=== PATIENT | male | born 1940 | race Caucasian/White ===

== ENCOUNTER 2016-07-13 11:09 | Outpatient (CLI) | payer MEDICARE, OTHER ==
[~2016-07-13] VITALS: Ht 182.9 cm; Wt 104.5 kg
--- NOTE | ~2016-07-13 | HEMODYNAMI ---
PATIENT:KRISTAL VUONG MEDICAL RECORD: [id number] : 38 LOCATION:[facility] ADMISSION DATE: 07/13/16 Generatedon:07/13/201614:43 Patient name: KRISTAL VUONG Patient #: [id number] SSN: : 1940 Date of study: 07/13/2016 Page: Of Hemodynamic Procedure Report Patient Data Patient Demographics Procedure consent was obtained First Name: KRISTAL Gender: Male Last Name: YEVGENIY : 1940 Middle Initial: FRANCO Age: 75 year(s) Patient #: [id number] Race: Unknown Additional ID: [id number] Contact details [address]: [address] [place] [address] ROAD State: [place] City: [place] Zip code: [address] Past Medical History Allergies Allergen Reaction Date Comments Reported Sulfa drugs 07/13/2016 Other allergy 07/13/2016 CIPRO, FIOMAX Admission Admission Data Admission Date: 07/13/2016 Admission Time: 11:09 Lab Results Lab Result Date: 07/13/2016 Lab Result Time: 0:00 Biochemistry Name Units Result Min Max BUN mg/dl 19 --(----)*- 7 18 Creatinine mg/dl 0.9 --(-*--)-- 0.6 1.3 CBC Name Units Result Min Max Hemoglobin g/dl 15.1 --(-*--)-- 13.5 17.5 Procedure Procedure Types Cath Procedure Miscellaneous Procedures Moderate Sedation up to 15 minutes Peripheral Cath Diagnostic Procedure Cath Peripheral Owrqa-Ldmqjnh-Wtt-Off Procedure Description Procedure Date Procedure Date: 07/13/2016 Procedure Start Time: 14:21 Procedure End Time: 14:42 Procedure Staff Name Function Mekhi Conley MD Performing Physician Lilli Veronica RN Nurse Simon Ramos RT Monitor Gerson Bang RT Scrub Procedure Data Cath Procedure Fluoroscopy Diagnostic fluoroscopy Total fluoroscopy Time: 1.1 time: 1.1 min min Diagnostic fluoroscopy Total fluoroscopy dose: 376 dose: 376 mGy mGy Contrast Material Contrast Material Type Amount (ml) Isovue 300 61 Entry Location Entry Primary Successful Side Size Upsize Upsize Entry Closure Succes sful Closure Location (Fr) 1 (Fr) 2 (Fr) Remarks Device Remarks Femoral Left 5 Fr Exoseal artery Diagnostic catheters Device Type Used For End Catheter Placement Cordis Tempo 5Fr UF catheter Procedure Complications No complications Procedure Medications Medication Administration Route Dosage Oxygen NC 2 l/min Heparin Flush Bag added to field 2 bags (1000units/500ml NS) Lidocaine 2% added to field 20 Versed I.V. 1 mg Fentanyl I.V. 50 mcg Versed I.V. 1 mg Fentanyl I.V. 50 mcg Versed I.V. 1 mg Fentanyl I.V. 50 mcg Benadryl I.V. 50 mg Hemodynamics Rest HGB: 15.1 (g/dl) Heart Rate: 70 (bpm) Snapshots Pre Cath Intra NCS Post Cath Vital Signs Time Heart Resp SPO2 etCO2 VB4swrl NIBP (mmHg) Rhythm Pain Sedation Rate (ipm) (%) (mmHg) (mmHg) Status Level (bpm) 14:02:44 67 14 96 0 0 175/90(135) NSR 0 (11) 10(A) , No pain 14:07:04 66 15 98 0 0 169/93(143) NSR 0 (11) 10(A) , No pain 14:11:26 66 20 100 0 0 166/96(111) NSR 0 (11) 10(A) , No pain 14:15:48 67 20 100 0 0 152/89(124) NSR 0 (11) 10(A) , No pain 14:20:08 71 22 97 0 0 146/92(122) NSR 0 (11) 9(A) , No pain 14:24:27 81 16 96 0 0 119/87(95) NSR 0 (11) 9(A) , No pain 14:29:26 79 16 97 0 0 164/95(130) NSR 0 (11) 9(A) , No pain 14:34:25 76 10 98 0 0 Measuring NSR 0 (11) 9(A) , No pain 14:34:33 73 11 98 0 0 166/99(131) NSR 0 (11) 9(A) , No pain 14:38:53 71 19 98 0 0 162/87(92) NSR 0 (11) 9(A) , No pain Medications Time Medication Route Dose Verified Delivered Reason Notes Effec tiveness by by 14:01:38 Oxygen NC 2 Mekhi Lilli Per l/min Jarvis Veronica RN physician 14:01:47 Heparin Flush added 2 Mekhi Mekhi used for Bag to bags Jarvis Conley MD procedure (1000units/500ml field NS) 14:01:53 Lidocaine 2% added 20ml Mekhi Mekhi used for to vial Jarvis Conley MD procedure field 14:02:31 Benadryl I.V. 50 mg Mekhi Lilli Per Jarvis Veronica RN physician 14:14:00 Versed I.V. 1 mg Mekhi Lilli for Jarvis Veronica RN sedation 14:14:14 Fentanyl I.V. 50 Mekhi Lilli for mcg Jarvis Veronica RN sedation 14:16:29 Versed I.V. 1 mg Mekhi Lilli for Jarvis Veronica RN sedation 14:16:33 Fentanyl I.V. 50 Mekhi Lilli for mcg Jarvis Veronica RN sedation 14:18:35 Versed I.V. 1 mg Mekhi Lilli for Jarvis Veronica RN sedation 14:18:44 Fentanyl I.V. 50 Mekhi Lilli for mcg Jarvis Veronica RN sedation Procedure Log Time Note 13:34:28 Procedure type changed to Cath procedure, Miscellaneous Procedures, Moderate Sedation up to 15 minutes, Peripheral Cath Diagnostic Procedure, Cath Peripheral, Ssxoo-Xbxqbif-Erp-Off 13:34:52 Simon Ramos RT(R) sent for patient. Start room use. 13:34:53 Time tracking: Regular hours 13:34:58 Plan of Care:Hemodynamics will remain stable., Cardiac rhythm will remain stable., Comfort level will be maintained., Respiratory function will remain adequate., Patient/ family verbilizes understanding of procedure., Procedure tolerated without complication., Recovers from procedure without complications.. 13:57:45 Patient received from Pre/Post Procedure Room to CCL 1 Alert and oriented. Tansferred to table in Supine position. 13:57:46 Warm blankets applied, and javad hugger turned on for patient comfort. 13:57:47 Correct patient and procedure confirmed by team. 13:57:48 Signed procedure consent form obtained from patient. 13:57:49 ECG and BP/O2 sat monitors applied to patient. 14:01:30 Vital chart was started 14:01:38 Oxygen 2 l/min NC was administered by Lilli Veronica RN; Per physician; 14:01:47 Heparin Flush Bag (1000units/500ml NS) 2 bags added to field was administered by Mekhi Conley MD; used for procedure; 14:01:53 Lidocaine 2% 20ml vial added to field was administered by Mekhi Conley MD; used for procedure; 14:02:31 Benadryl 50 mg I.V. was administered by Lilli Veronica RN; Per physician; 14:12:23 Baseline sample Acquired. 14:12:26 Rhythm: sinus rhythm 14:12:27 Full Disclosure recording started 14:12:40 H&P Date Dictated: 07/05/2016 Within 30 days and on chart., H&P Addendum completed by physician on day of procedure. (MUST COMPLETE FOR ALL OUTPATIENTS). 14:12:41 Pre-procedure instructions explained to patient. 14:12:42 Pre-op teaching completed and patient verbalized understanding. 14:12:44 Family in waiting room. 14:12:45 Patient NPO since Midnight. 14:12:50 Is the patient allergic to Iodine/contrast media? No. 14:12:52 Is patient on blood thinner?No 14:12:54 Patient diabetic? No. 14:12:55 ----Pre-sedation anethsthesia assessment.---- 14:12:58 Previous problem with sedation/anesthesia? No ? 14:13:03 Snore? Yes 14:13:04 Sleep apnea? No 14:13:06 Deviated septum? No 14:13:07 Opens mouth fully? Yes 14:13:08 Sticks out tongue? Yes 14:13:11 Airway obstruction? No ? 14:13:13 Dentures? No ? 14:13:20 Pre procedure: right dorsailis pedis pulse 1+ Palpable, but thready & weak; easily obliterated 14:13:27 Pre procedure: left dorsailis pedis pulse 1+ Palpable, but thready & weak; easily obliterated 14:13:29 Patient pain scale 0/10 ?. 14:13:33 IV patent on arrival in left forearm with 0.9% NaCl at 10ml/hr. 14:13:38 Bilateral groins area was prepped with chlora-prep and draped in sterile fashion 14:13:39 Alarms reviewed by R. N. 14:13:39 Sharps counted by scrub and verified by R.N. 14:13:41 --------ALL STOP TIME OUT------ 14:13:43 Final Timeout: patient, procedure, and site verified with staff and physician. All members of the team are in agreement. 14:13:45 Bilateral groins site verified by team. 14:13:47 Physical assessment completed. ASA score P 2 - A patient with mild systemic disease as per Mekhi Conley MD. 14:13:50 Sedation plan: IV Moderate Sedation Versed, Fentanyl 14:14:00 Versed 1 mg I.V. was administered by Lilli Veronica RN; for sedation; 14:14:14 Fentanyl 50 mcg I.V. was administered by Lilli Veronica RN; for sedation; 14:14:22 Lab Result : BUN 19 mg/dl 14:14:22 Lab Result : Creatinine 0.9 mg/dl 14:14:22 Lab Result : Hemoglobin 15.1 g/dl 14:14:27 Lab results completed and on chart. 14:14:50 Patient allergic to Sulfa drugs 14:15:07 Patient allergic to Other allergyCIPRO, FIOMAX 14:16:19 Use device set Femoral Dx 14:16:21 Acist Syringe opened to sterile field. 14:16:21 Bag Decanter opened to sterile field. 14:16:22 Medline Cath Pack opened to sterile field. 14:16:22 Terumo 5Fr Canby Sheath opened to sterile field. 14:16:23 St [facility] 260cm J .035 wire opened to sterile field. 14:16:24 Acist Hand Control opened to sterile field. 14:16:24 Acist Manifold opened to sterile field. 14:16:25 Tegaderm 4 x 4 opened to sterile field. 14:16:28 Procedure started. 14:16:29 Versed 1 mg I.V. was administered by Lilli Veronica RN; for sedation; 14:16:33 Fentanyl 50 mcg I.V. was administered by Lilli Veronica RN; for sedation; 14:18:35 Versed 1 mg I.V. was administered by Lilli Veronica RN; for sedation; 14:18:44 Fentanyl 50 mcg I.V. was administered by Lilli Veronica RN; for sedation; 14:: Local anesthetic to left femerol artery with Lidocaine 2% by Lilli Veronica RN.INITIAL ACCESS ONLY 14::32 A 5 Fr sheath was inserted into the Left Femoral artery 14:23:02 5 Fr UF guide catheter was inserted over the wire 14:23: Abdominal Aortagram was performed. 14::12 Right leg runoff performed. 14:: Left leg runoff performed. 14:: Guide catheter removed. 14::20 Contrast amount:Isovue 300 61ml. 14:: Sheath removed intact; hemostasis achieved with Exoseal to the Left Femoral artery. 14::45 Procedure ended.(Physican Out) 14::22 Fluoroscopy time 01.10 minutes. 14:: Fluoroscopy dose: 376 mGy 14:: Flurop Dose total: 376 14::30 Sharps counted by scrub and verified by R.N. 14:28:31 Insertion/operative site no bleeding no hematoma. 14:28:34 Post-op/insertion site Left Femoral artery dressed using a 4 x 4 and Tegaderm. 14::39 Post left femerol artery:stable 14::42 Post Procedure Pulses reassessed and unchanged 14::44 Post procedure rhythm: sinus rhythm 14::46 Post procedure instruction explained to patient.Patient verbalizes understanding. 14::45 A Cordis Tempo 5Fr UF catheter was advanced over the wire and used for . 14:30:37 Procedure and supply charges have been captured, reviewed, submitted and are correct. 14:30:51 Cordis 5Fr Exoseal opened to sterile field. 14:41:52 Procedure Complication : No complications 14:42:00 Vital chart was stopped 14:42:01 See physician's report for complete and final results. 14:42:04 Report given to Pre/Post Procedure Room. 14:42:14 Patient transfered to Pre/Post Procedure Room with Stretcher. 14:42:34 Procedure ended. 14:42:34 Full Disclosure recording stopped 14:42:39 End room use (Document Last) Device Usage Item Manufacture Quantity Catalog Hospital Part Current Minimal Lot# / Name Number Charge Number Stock Stock Clare al# Code Acist Acist 1 02862 670822 241484 [id number] 20 Syringe [employer] Inc Bag Microtek 1 2002S 110397 72799 135979 5 Decanter [employer]. Medline Cardinal 1 [id number] 58647 238068 5 Cath Health Pack Terumo Terumo 1 [id number] 987425 207760 392398 [address] [facility] 1 [id number] 943338 445919 425957 30 260cm J .035 wire Acist Acist 1 75775 688477 167395 207055 5 Hand Medical Control Systems Inc Acist Acist 1 69929 944892 985677 653560 5 Manifold Medical Systems Inc Tegaderm 1 1626W 115044 846464 810094 5 4 x 4 Cordis Cardinal 1 [id number] 684117 269146 144963 10 Tempo Health 5Fr UF catheter Cordis Cardinal 1 EX500 067539 397981 819088 10 5Fr Health Exoseal Signature Audit Sharon Stage Time Signature Unsigned Intra-Procedure 07/13/2016 Simon Ramos 2:43:29 PM RT(R) Signatures Monitor : Simon Ramos RT Signature : Date : Time : [address] [place] [address]
[~2016-07-13 11:09] MED LIST: ASCORBIC ACID500 MG PO; ASPIRIN325 MG PO; BYSTOLIC5 MG PO; FLEXERIL10 MG PO; PLAVIX75 MG PO; TYLENOL PM1 TAB PO; ZANTAC150 MG PO
[2016-07-13] MEDS ORDERED: NEURONTIN 400400 MG PO (11:46)
[2016-07-13] MEDS ORDERED: ELAVIL25 MG PO (11:46)
[2016-07-13] MEDS ORDERED: METOPROLOL TAR100 M1 PO (11:47)
[2016-07-13] MEDS ORDERED: NEURONTIN800 MG PO (11:47)
[2016-07-13 11:53] VITALS: BP 155/76; Ht 182.9 cm; Wt 104.5 kg
[2016-07-13 12:09] LABS: BASOPHILS 0 % (0-2); EOSINOPHILS 3.9 % (0-7); HEMATOCRIT 45.3 % (42.0-54.0); HEMOGLOBIN 15.1 g/dL (13.5-17.5); IMMATURE GRANULOCYTES 0.3 % (0-5); LYMPHOCYTES 34.5 % (15-50); MCHC 33.3 g/dL (31.0-37.0); MCV 99.1 fL (80.0-100.0); MEAN PLATELET VOLUME 12.3 fL (7.4-10.4); MONOCYTES 10.2 % (2-11); NEUTROPHILS 51.1 % (40-80); PLATELET COUNT 142 10x3/uL (130-400); RBC 4.57 10x6/uL (4.20-6.10); RDW 12.8 % (11.5-14.5); WBC 6.4 10x3/uL (4.8-10.8)
[2016-07-13 12:19] LABS: CALC OSMOLALITY 279 mosm/kg (275-300); CALCIUM 9.5 mg/dL (8.5-10.1); CARBON DIOXIDE 30.3 mmol/L (21.0-32.0); CHLORIDE - SERUM 103 mmol/L (98-107); CREATININE - SERUM 0.9 mg/dL (0.6-1.3); GLUCOSE 90 mg/dL (74-106); POTASSIUM - SERUM 4.4 mmol/L (3.5-5.1); SODIUM 139 mmol/L (136-145); UREA NITROGEN 19 mg/dL (7-18); eGFR NON AFRICAN AMERICAN 87 mL/min (90-120)
--- NOTE | 2016-07-13 18:37 | NUR ---
1515-LEFT GROIN CDI, NO HEMATOMA OR BLEEDING NOTED, SOFT TO TOUCH, AT SIDE 1545-NO CHANGES IN LEFT GROIN, CDI
--- NOTE | 2016-07-13 18:44 | NUR ---
1740-IV D'C WITH CATH TIP INTACT, WRITTEN AND VERBAL INSTRUCTIONS GIVEN TO PT AND , VERBAL UNDERSTANDING NOTED, TO REST ROOM -VOID
--- NOTE | 2016-07-15 10:59 | OP ---
PATIENT NAME: KRISTAL VUONG MEDICAL RECORD: [id number] :38 LOCATION:[facility] ADMISSION DATE: SURGEON: LUANN LANE M.D. DATE OF OPERATION: 07/13/2016 REFERRING PHYSICIAN: Macario Leary DO PROCEDURES PERFORMED: Aortofemoral runoff. INDICATION: A 75-year-old gentleman, who presents with symptoms of claudication. Recent arterial duplex suggested disease in the superficial femoral arteries. TECHNIQUE: A 5-Romansh sheath was inserted in retrograde fashion in the right common femoral artery. Next, a UF catheter was advanced to the level of T12. Power injection was performed to visualize the distal aorta. Next, the catheter was pulled down to the level of the aortic bifurcation. Lower extremity angiogram was then performed. FINDINGS: The distal aorta is of good caliber. Each kidney receives a single arterial supply. There is no evidence of renal artery stenosis. Left common iliac artery is large in caliber and widely patent. Left external iliac artery is large in caliber and widely patent. Left common femoral artery is large in caliber and widely patent. Left superficial artery is large in caliber. It appears to be 8-9 mm in diameter. It is widely patent. Left superficial artery is large in caliber and widely patent. Below the knee, there appears to be 3-vessel runoff. Right common iliac artery is large in caliber and widely patent. The right external iliac artery is large in caliber and widely patent. Right common femoral artery is large in caliber and widely patent. Right superficial artery is large in caliber and widely patent. Right popliteal artery is large in caliber and widely patent. Below the knee, there is 3-vessel runoff. IMPRESSION: Aortofemoral runoff reveals large caliber vessel bilaterally with no evidence of any significant peripheral vascular disease. RECOMMENDATIONS: I suspect his discomfort may be from his lumbar spine. We will continue with medical management. TRANSINT:[id number] Voice Confirmation ID: [id number] DOCUMENT ID: [id number] LUANN LANE M.D. at 1059 CC: [id number] DICTATION DATE: 07/13/16 1438 AUTOMOBILE TESTER: 07/13/16 2305 DEP CLI 07/13/[address] [facility] [address] [place] [address]
== END 2016-07-13 17:50 | disposition home or self-care (01) ==
LOC: D.CATH 11:09
PROVIDERS: Internal Medicine Cardiovascular Disease
DX: M79.606 Pain in leg, unspecified (principal)

== ENCOUNTER 2019-01-25 09:31 | Inpatient (IN) | payer MEDICARE ==
[~2019-01-25] VITALS: Ht 182.9 cm; Wt 96.8 kg
--- NOTE | ~2019-01-25 | HEMODYNAMI ---
PATIENT:KRISTAL VUONG MEDICAL RECORD: [id number] : 38 LOCATION:[facility] D.2114 ADMISSION DATE: 01/25/19 Generatedon:01/25/201913:57 Patient name: KRISTAL VUONG Patient #: [id number] : 1940 Date of study: 01/25/2019 Page: Of Hemodynamic Procedure Report Patient Data Patient Demographics Procedure consent was obtained First Name: KRISTAL Gender: Male Last Name: YEVGENIY : 1940 Middle Initial: FRANCO Age: 78 year(s) Patient #: [id number] Race: SSN: [id number] Additional ID: [id number] Contact details Address: [address] [place] [address] ROAD State: [place] City: [place] Zip code: [address] Past Medical History Allergies Allergen Reaction Date Comments Reported Sulfa drugs 07/13/2016 Other allergy 07/13/2016 CIPRO, FIOMAX Other allergy 01/25/2019 CIPRO,FLOMAX Admission Admission Data Admission Date: 01/25/2019 Admission Time: 11:29 Arrival Date: 01/25/2019 Arrival Time: 9:31 Admit Source: Other Insurance Payor: Medicare Room #: D.2114 [facility] #: [id number] Height (in.): 72.05 BSA: 2.19 (m2) Height (cm.): 183 BMI: 28.96 (kg/m2) Weight (lbs.): 213.85 Weight (kg.): 97 Lab Results Lab Result Date: 01/25/2019 Lab Result Time: 0:00 Biochemistry Name Units Result Min Max BUN mg/dl 15 --(--*-)-- 7 18 Creatinine mg/dl 0.8 --(-*--)-- 0.6 1.3 eGFR ml/min 90 --(*---)-- 90 120 NONAFRICAN CBC Name Units Result Min Max Hemoglobin g/dl 14.5 --(*---)-- 13.5 17.5 Procedure Procedure Types Cath Procedure Diagnostic Procedure LHC LHC w/Coronaries w/Grafts Sedation Charges Moderate Sedation up to 15 minutes PCI Procedure PTCA PTCA Initial Procedure Description Procedure Date Procedure Date: 01/25/2019 Procedure Start Time: 13:25 Procedure End Time: 13:55 Procedure Staff Name Function Yg Lebron MD Performing Physician Linnea Mg RT Monitor Brigid Odonnell RT Scrub Kristina Everett RN Nurse Procedure Data Cath Procedure Fluoroscopy Diagnostic fluoroscopy Total fluoroscopy Time: 6.3 time: 6.3 min min Diagnostic fluoroscopy Total fluoroscopy dose: dose: 1624 mGy 1624 mGy Contrast Material Contrast Material Type Amount (ml) Isovue 300 179 Entry Location Entry Primary Successful Side Size Upsize Upsize Entry Closure Succes sful Closure Location (Fr) 1 (Fr) 2 (Fr) Remarks Device Remarks Femoral Right 6 Fr Exoseal artery Short Estimated blood loss: 10 ml Diagnostic catheters Device Type Used For End Catheter Placement MULTIPACK JL 4.0 5Fr Procedure catheter MULTIPACK 3DRC 5Fr Procedure catheter MULTIPACK Pigtail 5 Fr Ventriculography catheter Procedure Complications No complications Procedure Medications Medication Administration Route Dosage 0.9% NaCl I.V. 100 ml/hr Oxygen etCO2 Nasal cannula 2 l/min Lidocaine 2% added to field 20 Heparin Flush Bag added to field 2 bags (1000units/500ml NS) Versed I.V. 2 mg Fentanyl I.V. 50 mcg Fentanyl I.V. 50 mcg Heparin Bolus I.V. 5000 units Integrilin (Bolus I.V. 9 ml 2mg/ml) Integrilin (Bolus wasted 2 ml 2mg/ml) Integrilin (Bolus I.C. 9 ml 2mg/ml) Integrilin Drip I.V. drip 16 ml/hr (75mg/100ml) Plavix P.O. 600 mg Hemodynamics Rest BSA: 2.19 (m2) HGB: 14.5 (g/dl) O2 Consumption: Estimated: 276.46 (ml/min) O2 Co nsumption indexed: Estimated:126.24 (ml/min/m) Heart Rate: 101 (bpm) Pressure Samples Time Site Value (mmHg) Purpose Heart Use Rate(bpm) 13:32 LV 124/8,18 Snapshot 81 13:32 AO 129/69(94) Pullback 78 13:32 LV 126/10,23 Pullback 78 Gradients Valve Time Site 1 Site 2 Mean SEP/DFP Peak To Heart Use (mmHg) (sec/min) Peak Rate (mmHg) (bpm) Aortic 13:32 LV AO 0 18 0 78 126/10,23 129/69(94) Calculations Valve P-P Mean Valve Index Valve Source Name Gradient Area Flow (cm2) Aortic 0 0 0 0 Snapshots Pre Cath Intra NCS Post Cath Vital Signs Time Heart Resp SPO2 etCO2 NIBP (mmHg) Rhythm Pain Sedation Rate (ipm) (%) (mmHg) Status Level (bpm) 13:13:57 77 19 97 18.1 129/88(104) NSR 0 (11) 10(A) , No pain 13:18:06 86 23 96 26.4 129/80(102) NSR 0 (11) 10(A) , No pain 13:22:18 79 13 96 21.8 121/79(95) NSR 0 (11) 10(A) , No pain 13:26:28 78 25 99 29.4 125/85(105) NSR 0 (11) 10(A) , No pain 13:30:40 77 23 98 32 143/83(113) NSR 0 (11) 10(A) , No pain 13:34:52 77 13 98 14.3 140/91(119) NSR 0 (11) 10(A) , No pain 13:39:00 80 14 98 12 128/85(105) NSR 0 (11) 10(A) , No pain 13:43:12 80 18 98 31.7 137/90(112) NSR 0 (11) 10(A) , No pain 13:48:11 79 20 99 22.6 Measuring NSR 0 (11) 10(A) , No pain 13:48:28 81 19 98 24.1 131/88(108) NSR 0 (11) 10(A) , No pain 13:52:42 80 21 98 33.2 143/91(119) NSR 0 (11) 10(A) , No pain Medications Time Medication Route Dose Verified Delivered Reason Notes Effectiveness by by 13:13:05 0.9% NaCl I.V. 100 Yg Acevedo used for ml/hr [facility] Everett procedure RN 13:13:11 Oxygen etCO2 2 Yg Kristina used for Nasal l/min [facility] procedure cannula RN 13:13:16 Lidocaine 2% added 20ml Yg Ronquillo for local to vial [facility] anesthetic field MD ROSEN 13:13:20 Heparin Flush added 2 Yg Ronquillo used for Bag to bags [facility] procedure (1000units/500ml field MD ROSEN NS) 13:19:07 Versed I.V. 2 mg Yg Englisha for sedation [facility] Everett MD, RN 13:19:11 Fentanyl I.V. 50 Yg Kristina for sedation mcg [facility] Everett MD, RN 13:27:37 Fentanyl I.V. 50 Yg Campbellyla for sedation mcg [facility] Everett MD RN 13:37:02 Heparin Bolus I.V. 5000 Yg Kristina for verif ied units [facility] anticoagulation with Dr. ROSEN RN [place] 13:37:17 Integrilin I.V. 9 ml Yg Campbellyla for (Bolus 2mg/ml) [facility] Everett antiplatelet RN therapy 13:37:27 Integrilin wasted 2 ml Yg Englisha for (Bolus 2mg/ml) [facility] Everett antiplatelet RN therapy 13:37:34 Integrilin I.C. 9 ml Yg Ronquillo for (Bolus 2mg/ml) [facility] Marc[facility] Lebron antiplatelet MD ROSEN therapy 13:46:26 Integrilin Drip I.V. 16 Yg Kristina for (75mg/100ml) drip ml/hr [facility] Everett antiplatelet RN therapy 13:46:36 Plavix P.O. 600 Yg Acevedo for mg [facility] Marc[facility] Everett antiplatelet RN therapy Procedure Log Time Note 12:36:19 Diagnostic Cath Status : Elective 12:37:35 Informed consent obtained and on chart 12:42:48 Admit Source: Other 12:42:50 Arrival Date: 01/25/2019 9:31:00 AM 12:43:53 Insurance Payor : Medicare 12:44:03 Patient Height : 72.05 inches 12:44:08 Patient Weight : 213.85 lbs 12:45:30 Lab Result : eGFR NONAFRICAN 90 ml/min 12:45:30 Lab Result : Hemoglobin 14.5 g/dl 12:45:30 Lab Result : BUN 15 mg/dl 12:45:30 Lab Result : Creatinine 0.8 mg/dl 12:45:37 ACC Patient presents with Stable Angina CCS Anginal Class 2--Slight limitation of ordinary activity. 12:45:42 Procedure Status Elective Heart Cath (OP). 12:45:45 Kristina Everett RN sent for patient. Start room use. 12:45:47 Time tracking: Regular hours (M-F 7:00 - 5:00) 12:45:52 Plan of Care:Hemodynamics will remain stable., Cardiac rhythm will remain stable., Comfort level will be maintained., Respiratory function will remain adequate., Patient/ family verbilizes understanding of procedure., Procedure tolerated without complication., Recovers from procedure without complications.. 12:46:40 Maximum allowable contrast dose (3.7 X eGFR X 0.75)249 ml. 12:46:43 1) 90+ Normal kidney functon but urine findings or structural abnormalities or genetic trait point to kidney disease. 12:48:51 Risk of Mortality: 1.3 12:48:55 Risk of blood transfusion: 1.1 12:49:01 Risk of TABBY: 6.4 13:12:57 Vital chart was started 13:13:05 0.9% NaCl 100 ml/hr I.V. was administered by Kristina Everett RN; used for procedure; Verbal order read back and verified. 13:13:11 Oxygen 2 l/min etCO2 Nasal cannula was administered by Kristina Everett RN; used for procedure; Verbal order read back and verified. 13:13:16 Lidocaine 2% 20ml vial added to field was administered by Yg Lebron MD; for local anesthetic; Verbal order read back and verified. 13:13:20 Heparin Flush Bag (1000units/500ml NS) 2 bags added to field was administered by Yg Lebron MD; used for procedure; Verbal order read back and verified. 13:15:51 Patient received from ED to CCL 1 Alert and oriented. Tansferred to table in Supine position. 13:16:01 Warm blankets applied, and javad hugger turned on for patient comfort. 13:16:02 Correct patient and procedure confirmed by team. 13:16:02 ECG and BP/O2 sat monitors applied to patient. 13:16:03 Baseline sample Acquired. 13:16:08 Full Disclosure recording started 13:16:12 H&P Date Dictated: 01/25/2019 Emergent; H&P N/A. 13:16:14 Pre-procedure instructions explained to patient. 13:16:20 Family in waiting room. 13:16:22 Patient NPO since Midnight. 13:17:06 Patient allergic to Other allergyCIPRO,FLOMAX 13:17:11 Is the patient allergic to Iodine/contrast media? No. 13:17:19 Was the patient premedicated? Yes 13:17:21 Is patient on blood thinner?No 13:17:23 Patient diabetic? No. 13:17:26 Snore? Yes 13:17:29 Sleep apnea? No 13:17:37 Patient pain scale 4/10 ?. 13:17:47 IV patent on arrival in left forearm with 0.9% NaCl at O. 13:17:50 Lab results completed and on chart. 13:17:55 Right groin area was prepped with chlora-prep and draped in sterile fashion 13:17:56 Alarms reviewed by R. N. 13:17:57 Sharps counted by scrub and verified by R.N. 13:17:58 Physician paged 13:17:59 Physician arrived 13:18:01 --------ALL STOP TIME OUT------ 13:18:01 Final Timeout: patient, procedure, and site verified with staff and physician. All members of the team are in agreement. 13:18:08 Right groin site verified by team. 13:18:12 Fire Safety Assessment: A--An alcohol-based skin anteseptic being used preoperatively., C--Open oxygen or nitrous oxide is being used., D--An ESU, laser, or fiber-optic light is being used. 13:18:16 Physical assessment completed. ASA score P 3 - A patient with severe systemic disease as per Yg Lebron MD. 13:18:23 Sedation plan: IV Moderate Sedation Medication:Versed, Fentanyl 13:18:41 Use device set Femoral Dx 13:18:43 ACIST Syringe (67793) opened to sterile field. 13:18:43 Bag Decanter () opened to sterile field. 13:18:43 Medline Cath Pack ([id number]) opened to sterile field. 13:18:45 ACIST Hand Control (31634) opened to sterile field. 13:18:45 ACIST Manifold (76929) opened to sterile field. 13:18:46 DIAGNOSTIC Multipack 5Fr catheter set (DT2632) opened to sterile field. 13:18:48 SHEATH 5FR [place] (OBJ368) opened to sterile field. 13:18:49 EMERALD Guide Wire (502-469) opened to sterile field. 13:19:07 Versed 2 mg I.V. was administered by Kristina Everett RN; for sedation; Verbal order read back and verified. 13:19:11 Fentanyl 50 mcg I.V. was administered by Kristina Everett RN; for sedation; Verbal order read back and verified. 13:25:04 Procedure started. 13:25:18 Local anesthetic to right femoral artery with Lidocaine 2% by Yg Lebron MD.INITIAL ACCESS ONLY 13:25:27 A 6 Fr Short sheath was inserted into the Right Femoral artery 13:25:56 Quick Combo opened to sterile field. 13:26:11 j wire advanced. 13:26:36 Quick combo pads placed on patients chest and back. 13:27:04 A MULTIPACK JL 4.0 5Fr catheter was advanced over the wire and used for Procedure. 13:27:08 LCA angiography performed. 13:27:11 Catheter removed. 13:27:25 A MULTIPACK 3DRC 5Fr catheter was advanced over the wire and used for Procedure. 13:27:37 Fentanyl 50 mcg I.V. was administered by Kristina Everett RN; for sedation; Verbal order read back and verified. 13:28:35 SVG to LAD angiography performed. 13:30:20 SVG to RCA angiography performed. 13:31:28 Catheter removed. 13:31:40 A MULTIPACK Pigtail 5 Fr catheter was advanced over the wire and used for Ventriculography. 13:31:44 LV gram done using PERDOMO 13:32:22 EF : 50 % 13:33:50 INFLATOR Merit BasixCompak (OG6760) opened to sterile field. 13:33:51 WHISPER 300cm guide wire ([id number]) opened to sterile field. 13:33:57 Catheter removed. 13:34:00 Proceeding to intervention. 13:34:07 ACC Pre-intervention BRYAN Flow is 0. 13:34:21 Pre PCI Site: Vein Graft [facility] has 100% stenosis. 13:34:28 6 Fr jr4 guide catheter was inserted over the wire 13:35:24 WHISPER wire advanced. 13:37:02 Heparin Bolus 5000 units I.V. was administered by Kristina Everett RN; for anticoagulation; verified with Dr. Tompkins Verbal order read back and verified. 13:37:17 Integrilin (Bolus 2mg/ml) 9 ml I.V. was administered by Kristina Everett RN; for antiplatelet therapy; Verbal order read back and verified. 13:37:27 Integrilin (Bolus 2mg/ml) 2 ml wasted was administered by Kristina Everett RN; for antiplatelet therapy; Verbal order read back and verified. 13:37:34 Integrilin (Bolus 2mg/ml) 9 ml I.C. was administered by Yg Lebron MD; for antiplatelet therapy; Verbal order read back and verified. 13:41:41 Inflate balloon Inflation number: 1 A EMERGE OTW 4.0 x 12 balloon ([id number]) was prepped and advanced across the Aorta Right -> Mid CX 100, then inflated to 6 HARIS for 0:22 (min:sec) . 13:42:44 MULTIPLE INFLATIONS 13:46:26 Integrilin Drip (75mg/100ml) 16 ml/hr I.V. drip was administered by Kristina Everett RN; for antiplatelet therapy; Verbal order read back and verified. 13:46:36 Plavix 600 mg P.O. was administered by Kristina Everett RN; for antiplatelet therapy; Verbal order read back and verified. 13:47:08 EXOSEAL 6Fr (EX600) opened to sterile field. 13:47:35 Wire removed. 13:48:24 Guide catheter removed. 13:48:37 Sheath removed intact; hemostasis achieved with Exoseal to the Right Femoral artery. 13:50:02 Procedure ended.(Physican Out) 13:51:58 Fluoroscopy time 06.30 minutes. 13:52:02 Fluoroscopy dose: 1624 mGy 13:52:02 Flurop Dose total: 1624 13:52:10 Dose Area Product 98089 mGy/cm. 13:52:15 Contrast amount:Isovue 300 179ml. 13:52:21 Maximum allowable dose exceeded? No. 13:52:26 Sharps counted by scrub and verified by R.N. 13:52:29 Insertion/operative site no bleeding no hematoma. 13:52:35 Post-op/insertion site Right Femoral artery dressed using a 4 x 4 and Tegaderm. 13:52:38 Post Procedure Pulses reassessed and unchanged 13:52:44 Post-procedure physical assessment completed. ASA score P 3 - A patient with severe systemic disease as per Yg Lebron MD. 13:52:54 Post procedure rhythm: sinus rhythm 13:53:00 Estimated blood loss: 10 ml 13:53:02 Post procedure instruction explained to patient.Patient verbalizes understanding. 13:53:04 Patient needs reinforcement of post procedure teaching. 13:53:11 ACT drawn and resulted at 289 seconds. (normal therapeutic range 180-240 seconds). 13:53:44 Procedure type changed to Cath procedure, Diagnostic procedure, LHC, LHC w/Coronaries w/Grafts, Sedation Charges, Moderate Sedation up to 15 minutes, PCI procedure, PTCA, PTCA Initial 13:53:47 Procedure and supply charges have been captured, reviewed, submitted and are correct. 13:54:12 Procedure Complication : No complications 13:54:15 Vital chart was stopped 13:54:33 [facility] Findings: MVD- PCI performed (see procedure note) 13:54:41 Operative report dictated upon procedure completion. 13:54:41 See physician's report for complete and final results. 13:54:52 Report given to Pre/Post Procedure Room. 13:55:01 Patient transfered to [facility] with Stretcher. 13:55:04 Procedure ended. 13:55:04 Full Disclosure recording stopped 13:55:11 End room use (Document Last) 13:55:18 ACC-PCI Only Patient was given prescriptions, or instructed by Yg Lebron MD to start/continue the following medications upon discharge: Plavix Intervention Summary Intervention Notes Time ActionType Lesion and Equipment Action# Pressure Duration Attributes Used 13:41:41 Inflate Aorta Right EMERGE OTW 1 6 00:22 balloon -> Mid CX 4.0 x 12 balloon ([id number]) Device Usage Item Name Manufacture Quantity Catalog Number Hospital Part Current Mini [facility] Lot# / Charge Number Stock Stock Serial# Code ACIST Acist 1 69396 295278 985134 387223 20 [employer] (84130) Lumenis Bag Decanter Microtek 1 2001S 815723 25689 714331 5 (2002S) Medical Inc. Medline Cath Medline 1 [id number] 120314 61314 597783 5 Pack ([id number]) ACIST Hand Acist 1 48893 253480 806891 855415 5 Control Medical (42665) Systems Inc ACIST Acist 1 44790 640366 756945 977793 5 Manifold Medical (26272) Systems Inc DIAGNOSTIC Cardinal 1 MP3709 500650 51934 150548 30 Multipack Health 5Fr catheter set (JQ1083) SHEATH 5FR Terumo 1 SJD529 397090 147590 996561 5 [place] (XQK534) EMERALD Cardinal 1 502-455 545183 167509 020371 5 Guide Wire Adelja Learning (502455) Quant the News 1 79998-318634 113869 583955 268327 5 MULTIPACK JL Cardinal 1 405234 5 4.0 5Fr Health catheter MULTIPACK Cardinal 1 623516 5 3DRC 5Fr Health catheter MULTIPACK Cardinal 1 512488 5 Pigtail 5 Fr Health catheter INFLATOR Merit 1 RI1920 259346 894723 753190 15 [facility] Medical BasixCompak (DM5922) WHISPER Bean 1 [id number] 850060 442742 491228 5 300cm guide Vascular wire ([id number]) EMERGE OTW Russell 1 [id number] 992141 846504 326343 5 [id number] 4.0 x 12 Scientific balloon ([id number]) EXOSEAL 6Fr Cardinal 1 EX600 380621 018069 833430 10 (EX600) Health Signature Audit [place] Stage Time Signature Unsigned Intra-Procedure 01/25/2019 Linnea Mg 1:55:56 PM RT(R) Intra-Procedure 01/25/2019 Kristina Everett 1:56:36 PM RN Intra-Procedure 01/25/2019 Yg Snider 1:57:15 PM Marciano ROSEN [id number] [place] [address]
[~2019-01-25 09:31] MED LIST changes: +CYCLOBENZAPRINE10 MG PO; +ELAVIL25 MG PO; -FLEXERIL10 MG PO; +METOPROLOL TAR100 M1 PO; +NEURONTIN 400400 MG PO; +NEURONTIN800 MG PO
[2019-01-25] MEDS ORDERED: ISOSORBIDE MONO60 M1 PO (09:52)
[2019-01-25] MEDS ORDERED: NORVASC5 MG PO (09:52)
[2019-01-25 09:53] LABS: BASOPHILS 0.1 % (0-2); EOSINOPHILS 4.2 % (0-7); HEMATOCRIT 43.8 % (42.0-54.0); HEMOGLOBIN 14.5 g/dL (13.5-17.5); IMMATURE GRANULOCYTES 0.4 % (0-5); LYMPHOCYTES 29.5 % (15-50); MCHC 33.1 g/dL (31.0-37.0); MCV 99.8 fL (80.0-100.0); MEAN PLATELET VOLUME 12.2 fL (7.4-10.4); MONOCYTES 9.9 % (2-11); NEUTROPHILS 55.9 % (40-80); RBC 4.39 10x6/uL (4.20-6.10); RDW 12.8 % (11.5-14.5); WBC 7.2 10x3/uL (4.8-10.8)
[2019-01-25 10:04] LABS: PLATELET COUNT 197 10x3/uL (130-400)
[2019-01-25 10:06] LABS: APTT 28.9 SECONDS (22.8-39.4); INR 1.01 (0.85-1.17); PROTIME 12.8 SECONDS (11.6-15.0)
[2019-01-25 10:19] LABS: CALC OSMOLALITY 279 mosm/kg (275-300); CALCIUM 8.9 mg/dL (8.5-10.1); CARBON DIOXIDE 29.3 mmol/L (21.0-32.0); CHLORIDE - SERUM 103 mmol/L (98-107); CREATININE - SERUM 0.8 mg/dL (0.6-1.3); GLUCOSE 145 mg/dL (74-106); SODIUM 138 mmol/L (136-145); UREA NITROGEN 15 mg/dL (7-18); eGFR NON AFRICAN AMERICAN > 90 mL/min (90-120)
[2019-01-25] MEDS ORDERED: RANITIDINE HCL150 M1 PO (10:22)
[2019-01-25] MEDS ORDERED: VITAMIN D31000 UNIT PO (10:23)
[2019-01-25] MEDS ORDERED: IBUPROFEN800 MG PO (10:23)
[2019-01-25] MEDS ORDERED: ZYRTEC10 MG PO (10:23)
[2019-01-25] MEDS ORDERED: NITROSTAT0.4 MG SL (10:23)
[2019-01-25 10:35] LABS: ALBUMIN 3.5 g/dL (3.4-5.0); ALKALINE PHOSPHATASE 78 U/L (46-116); ALT (SGPT) 20 U/L (10-68); BILIRUBIN - TOTAL 0.69 mg/dL (0.2-1.3); CKMB 2.1 U/L (0.0-3.6); CREATINE KINASE 55 UL (21-232); TROPONIN-I 0.058 ng/mL (0.000-0.060)
[2019-01-25 10:42] VITALS: BP 122/76
--- NOTE | 2019-01-25 11:30 | NUR ---
DR LANE HERE FOR CONSULT, WITH PATIENT NOW.
[2019-01-25 12:10] LABS: CHOL - HDL RATIO 6.4 ratio (2.3-4.9); LDL-HDL RATIO 4.2 ratio (1.5-3.5)
--- NOTE | 2019-01-25 12:19 | NUR ---
PT PREOPPED AND CONSENT FOR PRINT TRAFFIC MANAGER OBTAINED.
--- NOTE | 2019-01-25 12:36 | NUR ---
PT TO BE ADMITTED TO ROOM 2113. REPORT TO JAMES WASHINGTON
--- NOTE | 2019-01-25 12:55 | MORECARE ---
CASE MANAGEMENT DISCHARGE SUMMARY PATIENT: KRISTAL VUONG UNIT: [id number] ADM DATE: 01/25/19 AGE: 78 : 39 SEX: M ROOM/BED: D.2114 AUTHOR: JAYCE,DOC PHYSICIAN: REFERRING PHYSICIAN: LUÍS PHILLIPS MD DATE OF SERVICE: 01/25/19 Discharge Plan Patient Name: KRISTAL VUONG Facility: [facility]:[place] : 1940 Planned Disposition: Home Anticipated Discharge Date: 01/27/19 Discharge Date: Expected LOS: 2 Initial Reviewer: [email or web address] Initial Review Date: 01/25/2019 Generated: 01/25/19 1:55 pm DCP- Discharge Planning Updated by [email or web address]: Whit Fox on 01/25/19 11:[address] DC PLAN: Return home with his independently. ANTICIPATED DC NEEDS: Denied known needs at time of assessment. CM met with patient, his , and his daughter to complete initial dc planning assessment. CM educated patient on the CM role and verbal consent given by patient to complete assessment. CM verified patient's address, phone number, and emergency contact phone numbers. Patient lives at home independently with his . At discharge patient plans to return home and feels this is a safe discharge. CM discussed availability of home health, rehab services, and medical equipment. Patient denied known discharge needs at this time. Transportation provider at discharge will be his . CM will continue to follow and will assist as needed with dc plans/needs. Whit Fox RN, [facility] DCPIA - Discharge Planning Initial Assessment Updated by [email or web address]: Whit Fox on 01/25/19 12:51 pm * Is the patient Alert and Oriented? Yes * How many steps to enter\exit or inside your home? none * PCP Dr. Gibson * Pharmacy [facility] * Preadmission Environment Home with Family * ADLs Independent * Equipment Cane * List name and contact numbers for known caregivers / representatives who currently or will assist patient after discharge: Leslie cobian - [phone] * Verbal permission to speak to the caregivers and representatives has been obtained from the patient. Yes * Community resources currently utilized None * Can the patient safely return to the preadmission environment? Yes * Has this patient been hospitalized within the prior 30 days at any hospital? No Patient Name: KRISTAL VUONG Page [id number] at 1255 All edits/amendments must be made on the electronic document DICTATION DATE: 01/25/19 125 PRINCIPAL SECRETARY: JAG 01/25/19 1258 RPT#: [id number] DC DATE: STATUS: ADM IN [facility] [address] [place] [address] END OF REPORT
--- NOTE | 2019-01-25 13:50 | NUR ---
IV STOP TIME 1300, PT TO PHOTOGRAPHER'S ASSISTANT
--- NOTE | 2019-01-25 14:32 | NUR ---
TRANSFER FROM AUTOMOBILE REPAIR SERVICE ESTIMATOR. VS WNL. RIGHT GROIN STABLE. OREINTED TO ROOM. CALL LIGHT IN REACH. WILL CONT. PLAN OF CARE.
[2019-01-25 14:42] VITALS: BP 117/75; Ht 182.9 cm; Wt 96.8 kg
[2019-01-25 17:19] VITALS: BP 125/81
--- NOTE | 2019-01-25 18:20 | NUR ---
BED REST UP. GROIN STABLE.
--- NOTE | 2019-01-25 19:45 | NUR ---
RECEIVED BEDSIDE REPORT. PATIENT IS ALERT AND ORIENTED, RESTING COMFORTABLY IN BED. RESPIRATIONS ARE EVEN AND UNLABORED. INTEGRILIN INFUSION COMPLETE. NEEDS MET. NO S/S OF DISTRESS. NO C/O PAIN. CALL LIGHT WITHIN REACH. WILL CPOC.
[2019-01-25 20:39] VITALS: BP 125/71
--- NOTE | 2019-01-25 22:04 | NUR ---
FOUND PATIENT LEAVING UNIT COMPLETELY DRESSED. ASKED PATIENT WHERE HE WAS GOING HE STATED HE WAS LEAVING. PATIENT REQUESTING HIS NIGHT MEDS. NO MEDICATION WAS RESTARTED. PAGED NAM MARIN APN. HE WILL LOOK AT IT.
[2019-01-26 00:15] VITALS: BP 137/79
--- NOTE | 2019-01-26 02:10 | NUR ---
PATIENT RESTING COMFORTABLY IN CHAIR. RESPIRATIONS ARE EVEN AND UNLABORED. NO S/S OF DISTRESS. CALL LIGHT WITHIN REACH. WILL CPOC.
[2019-01-26 04:45] VITALS: BP 122/74
[2019-01-26 05:55] LABS: BASOPHILS 0.1 % (0-2); EOSINOPHILS 1.6 % (0-7); HEMATOCRIT 40.8 % (42.0-54.0); HEMOGLOBIN 13.6 g/dL (13.5-17.5); IMMATURE GRANULOCYTES 0.2 % (0-5); LYMPHOCYTES 14.7 % (15-50); MCH 33.1 pg (26.0-34.0); MCHC 33.3 g/dL (31.0-37.0); MCV 99.3 fL (80.0-100.0); MEAN PLATELET VOLUME 12.3 fL (7.4-10.4); MONOCYTES 8.2 % (2-11); NEUTROPHILS 75.2 % (40-80); PLATELET COUNT 162 10x3/uL (130-400); RBC 4.11 10x6/uL (4.20-6.10); RDW 12.9 % (11.5-14.5)
[2019-01-26 06:24] LABS: CALC OSMOLALITY 278 mosm/kg (275-300); CALCIUM 8.9 mg/dL (8.5-10.1); CARBON DIOXIDE 27.6 mmol/L (21.0-32.0); CHLORIDE - SERUM 104 mmol/L (98-107); CREATININE - SERUM 0.8 mg/dL (0.6-1.3); GLUCOSE 114 mg/dL (74-106); POTASSIUM - SERUM 4.4 mmol/L (3.5-5.1); SODIUM 139 mmol/L (136-145); UREA NITROGEN 12 mg/dL (7-18); eGFR NON AFRICAN AMERICAN > 90 mL/min (90-120)
[2019-01-26 08:00] VITALS: BP 133/78
[2019-01-26 10:55] VITALS: BP 100/59
--- NOTE | 2019-01-26 12:01 | OP ---
PATIENT NAME: KRISTAL VUONG MEDICAL RECORD: [id number] :38 LOCATION:D.M2 D.2114 ADMISSION DATE:01/25/19 SURGEON: PAPITO PEÑA MD DATE OF OPERATION: 01/25/2019 PROCEDURES: Left heart catheterization, selective coronary angiography, right femoral artery approach. CATHETERS: A 5-Mongolian sheath, 5/4 left and right Guicho, 5/4 pig. The procedure was well tolerated. The patient was returned to [facility]. Sheath was removed. ExoSeal device was placed. FINDINGS: Left ventriculography in 30-degree PERDOMO view: Normal wall motion and normal systolic function. CORONARY ANATOMY: LEFT MAIN: Left main fills for a short period of time. This fills the nub of the LAD and circ, then is totally occluded. LAD: Totally occluded. CIRCUMFLEX: Totally occluded. RIGHT CORONARY ARTERY: Totally occluded in its mid portion. BYPASS GRAFTS: 1. Saphenous vein graft to the right coronary artery is widely patent throughout its course. 2. Saphenous vein graft to the LAD diagonal and terminates in an end-to-side anastomosis to the circumflex, where there is a large stent. This stent is totally occluded, obviously infarct related artery. PLAN: Intervention momentarily. DESCRIPTION OF PROCEDURE: A 5-Mongolian sheath was exchanged for a 6-Mongolian sheath. A JR4 guiding catheter provided good guide catheter support. We initially gave the patient intracoronary Integrilin, which showed some washout of the thrombus. We were able to place a wire then across the total occlusion and balloon distally. We performed inflations with a 4.0 x 12 balloon up to 10 atmospheres. This showed improvement in the lesion, but with marked thrombus burden distally. Therefore, the patient was started on heparin drip. IMPRESSION: Successful PTCA to 100% stenosed stent to the circumflex. BRYAN flow improved from 0 to 2, but still again with marked thrombus burden. The patient was given IC Integrilin. We will continue on Integrilin drip overnight. TRANSINT:[id number] Voice Confirmation ID: [id number] DOCUMENT ID: [id number] PAPITO PEÑA MD at 1201 CC: [id number] DICTATION DATE: 01/25/194 AREA COORDINATOR: 01/25/19 1921 ADM IN [facility] [address] [place] [address]
[2019-01-26] MEDS ORDERED: PLAVIX75 MG PO (13:06)
--- NOTE | 2019-01-26 14:23 | NUR ---
IV AND TELEMETRY DCD. DC PLANS GIVEN. UNDERSTANDING VOICED. ESCORTED TO CAR BY W/C.
--- NOTE | 2019-01-26 16:17 | MORECARE ---
CASE MANAGEMENT DISCHARGE SUMMARY PATIENT: KRISTAL VUONG UNIT: [id number] ADM DATE: 01/25/19 AGE: 78 : 39 SEX: M ROOM/BED: D.2114 AUTHOR: JAYCE,DOC PHYSICIAN: REFERRING PHYSICIAN: LUÍS PHILLIPS MD DATE OF SERVICE: 01/26/19 Discharge Plan Patient Name: KRISTAL VUONG Facility: [facility]:[place] : 1940 Planned Disposition: Home Anticipated Discharge Date: 01/26/19 Discharge Date: 01/26/2019 Expected LOS: 1 Initial Reviewer: [email or web address] Initial Review Date: 01/25/2019 Generated: 01/26/19 5:16 pm DCP- Discharge Planning Updated by [email or web address]: Whit Fox on 01/25/19 11:[address] DC PLAN: Return home with his independently. ANTICIPATED DC NEEDS: Denied known needs at time of assessment. CM met with patient, his , and his daughter to complete initial dc planning assessment. CM educated patient on the CM role and verbal consent given by patient to complete assessment. CM verified patient's address, phone number, and emergency contact phone numbers. Patient lives at home independently with his . At discharge patient plans to return home and feels this is a safe discharge. CM discussed availability of home health, rehab services, and medical equipment. Patient denied known discharge needs at this time. Transportation provider at discharge will be his . CM will continue to follow and will assist as needed with dc plans/needs. Whit Fox RN, [facility] DCPIA - Discharge Planning Initial Assessment Updated by [email or web address]: Whit Fox on 01/25/19 12:51 pm * Is the patient Alert and Oriented? Yes * How many steps to enter\exit or inside your home? none * PCP Dr. Gibson * Pharmacy [facility] * Preadmission Environment Home with Family * ADLs Independent * Equipment Cane * List name and contact numbers for known caregivers / representatives who currently or will assist patient after discharge: Leslie cobian - [phone] * Verbal permission to speak to the caregivers and representatives has been obtained from the patient. Yes * Community resources currently utilized None * Can the patient safely return to the preadmission environment? Yes * Has this patient been hospitalized within the prior 30 days at any hospital? No Last DP export: 01/25/19 11:55 Patient Name: KRISTAL VUONG Page 18962 at 1617 All edits/amendments must be made on the electronic document DICTATION DATE: 01/26/191615 PHOTOGRAMMETRIC STEREO COMPILER: JAG 01/26/191615 RPT#: [id number] DC DATE:01/26/19 STATUS: DIS IN [facility] [address] [place] [address] END OF REPORT
== END 2019-01-26 14:23 | disposition home or self-care (01) | DRG 251 ==
LOC: D.ER 09:31 → D.M2 11:29
PROVIDERS: Family Medicine; Internal Medicine Cardiovascular Disease; Internal Medicine Interventional Cardiology; ADMIT Internal Medicine Nephrology; ATTEND Internal Medicine Nephrology
PROC: B2111ZZ Fluoroscopy of Multiple Coronary Arteries using Low Osmolar Contrast (ICD-10-PCS; 2019-01-25)
PROC: B2131ZZ Fluoroscopy of Multiple Coronary Artery Bypass Grafts using Low Osmolar Contrast (ICD-10-PCS; 2019-01-25)
PROC: B2151ZZ Fluoroscopy of Left Heart using Low Osmolar Contrast (ICD-10-PCS; 2019-01-25)
PROC: 02703ZZ Dilation of Coronary Artery, One Artery, Percutaneous Approach (ICD-10-PCS; principal; 2019-01-25 12:45)
PROC: 4A023N7 Measurement of Cardiac Sampling and Pressure, Left Heart, Percutaneous Approach (ICD-10-PCS; 2019-01-25 12:45)
DX: I21.A9 Other myocardial infarction type (principal); T82.855A Stenosis of coronary artery stent, initial encounter; J81.1 Chronic pulmonary edema; N17.9 Acute kidney failure, unspecified; I25.110 Atherosclerotic heart disease of native coronary artery with unstable angina pectoris; Y83.9 Surgical procedure, unspecified as the cause of abnormal reaction of the patient, or of later complication, without mention of misadventure at the time of the procedure; E78.5 Hyperlipidemia, unspecified; I10 Essential (primary) hypertension; G62.9 Polyneuropathy, unspecified; G89.29 Other chronic pain; M54.9 Dorsalgia, unspecified; M81.0 Age-related osteoporosis without current pathological fracture; N40.0 Benign prostatic hyperplasia without lower urinary tract symptoms

== ENCOUNTER 2019-03-01 09:35 | Inpatient (IN) | payer MEDICARE, OTHER ==
[~2019-03-01] VITALS: Ht 182.9 cm; Wt 89.8 kg
--- NOTE | ~2019-03-01 | EC ---
PATIENT:KRISTAL VUONG DATE OF SERVICE: 03/01/19 SEX: M MEDICAL RECORD: [id number] DATE OF : 38 LOCATION:D.M2 D.211 AGE OF PATIENT: 78 ADMISSION DATE: 03/01/19 REFERRING PHYSICIAN: INTERPRETING PHYSICIAN: PROSPER KUMAR MD ECHOCARDIOGRAM REPORT ECHO CHARGES 4 ECHO COMPLETE Date: 03/01/19 CLINICAL DIAGNOSIS: CHF ECHOCARDIOGRAPHIC MEASUREMENTS (adult normal given) AC root (d.<3.7cm) 3.4 cm LV Septum d (<1.2 cm> 0.8 cm Valve Excursion 2.3 cm LV Septum (systole) 1.3 cm Left Atria (s.<4.0cm> 4.2 cm LVPW d(<1.2cm) 1.0 cm RV (d.<2.3cm) 2.4 cm LVPW (sytole) 1.4 cm LV diastole(<5.6CM) 5.0 cm MV E-F(>70mm/sec) cm LV systole 3.6 cm LVOT Diameter 2.3 cm MV exc.(>10mm) cm Est.ejection fraction (50-75%) % DOPPLER: LVIT cm/sec A 72.0 cm/sec E 63.0 cm/sec LA cm/sec RVSP 48.0 mmHg LVOT 85.0 cm/sec AOP1/2T m/s Asc. Ao 132 cm/sec RVOT 47.0 cm/sec RA cm/sec PA 91.0 cm/sec AV Gradient Peak 6.9 mmHg AV Mean 3.9 mmHg AV Area 2.6 cm MV Gradient Peak 3.2 mmHg MV Mean 1.3 mmHg MV Area cm COMMENTS: Tea Blender: Maria R MORALESOE Insulator Technician: 1 Dr. Kumar TAPE# PACS Pericardial Effusion N DATE OF SERVICE: 03/01/2019 ECHOCARDIOGRAM: 1. Left ventricular chamber size is mildly dilated. Left ventricular systolic function is mildly reduced, overall ejection fraction in the 40% range. 2. Left atrium is enlarged at 4.2 cm. Right atrium and right ventricular chamber sizes are as well mildly dilated. 3. Valvular structures have normal structure and motion. 4. Doppler interrogation reveals mild aortic insufficiency, mild mitral ECHOCARDIOGRAM REPORT [id number] KRISTAL VUONG regurgitation, moderate tricuspid regurgitation, no other valvular insufficiency or stenosis. Pulmonary systolic pressure is estimated 48 mmHg. 5. No evidence of pericardial effusion or left ventricular thrombus. TRANSINT:[id number] Voice Confirmation ID: [id number] DOCUMENT ID: [id number] PROSPER KUMAR MD CC: [id number] DICTATION DATE: 03/02/191253 SKEIN DYER: 03/02/19 1719 ADM IN [facility] [address] [place] [address]
--- NOTE | ~2019-03-01 | HEMODYNAMI ---
PATIENT:KRISTAL VUONG MEDICAL RECORD: [id number] : 38 [id number] ADMISSION DATE: 03/01/19 Generatedon:03/02/201910:13 Patient name: KRISTAL VUONG Patient #: [id number] : 1940 Date of study: 03/02/2019 Page: Of Hemodynamic Procedure Report Patient Data Patient Demographics Procedure consent was obtained First Name: KRISTAL Gender: Male Last Name: YEVGENIY : 1940 [facility] Initial: FRANCO Age: 78 year(s) Patient #: [id number] Race: SSN: [id number] Additional ID: [id number] Contact details [address]: [address] [place] [address] ROAD State: [place] City: [place] Zip code: [address] Past Medical History Allergies Allergen Reaction Date Comments Reported Sulfa drugs 07/13/2016 Other allergy 07/13/2016 CIPRO, FIOMAX Other allergy 01/25/2019 CIPRO,FLOMAX Admission Admission Data Admission Date: 03/01/2019 Admission Time: 10:55 Arrival Date: 03/01/2019 Arrival Time: 10:55 Admit Source: Other Insurance Payor: Medicare, Room #: D.2118 Medicaid HIC #: [id number] Height (in.): 72.05 BSA: 2.18 (m2) Height (cm.): 183 BMI: 28.67 (kg/m2) Weight (lbs.): 211.64 Weight (kg.): 96 Lab Results Lab Result Date: 03/02/2019 Lab Result Time: 0:00 Biochemistry Name Units Result Min Max BUN mg/dl 15 --(--*-)-- 7 18 Creatinine mg/dl 1.1 --(--*-)-- 0.6 1.3 eGFR ml/min 67.98439 *-(----)-- 90 120 NONAFRICAN CBC Name Units Result Min Max Hemoglobin g/dl 13.7 --(*---)-- 13.5 17.5 Procedure Procedure Types Cath Procedure Diagnostic Procedure LHC LHC w/Coronaries w/Grafts Sedation Charges Moderate Sedation up to 30 minutes PCI Procedure Coronary Stent Coronary Stent Initial x2 Procedure Description Procedure Date Procedure Date: 03/02/2019 Procedure Start Time: 9:49 Procedure End Time: 10:06 Procedure Staff Name Function Gerson Merritt RT Process Designer Brigid Odonnell RT Monitor Antonio Tobias RN Nurse Kentrell Kumar MD Performing Physician Linnea Mg RT Scrub Ismael Gonzales RN Nurse Procedure Data Cath Procedure Fluoroscopy Diagnostic fluoroscopy Total fluoroscopy Time: 3.7 time: 3.7 min min Diagnostic fluoroscopy Total fluoroscopy dose: dose: 1161 mGy 1161 mGy Contrast Material Contrast Material Type Amount (ml) Isovue 300 73 Entry Location Entry Primary Successful Side Size Upsize Upsize Entry Closure Succes sful Closure Location (Fr) 1 (Fr) 2 (Fr) Remarks Device Remarks Femoral Right 5 Fr 6 Fr Exoseal artery Short Estimated blood loss: 5 ml Diagnostic catheters Device Type Used For End Catheter Placement MULTIPACK Pigtail 5 Fr LV Angiography catheter MULTIPACK JL 4.0 5Fr Left Coronary catheter Angiography MULTIPACK 3DRC 5Fr Right Coronary catheter Angiography DIAGNOSTIC AR2 MOD 5 Fr SVG Angiography catheter ([id number]) Procedure Complications No complications Procedure Medications Medication Administration Route Dosage Oxygen etCO2 Nasal cannula 2 l/min Heparin Flush Bag added to field 2 bags (1000units/500ml NS) 0.9% NaCl I.V. 100 ml/hr Lidocaine 2% added to field 20 Fentanyl I.V. 50 mcg Versed I.V. 1 mg Fentanyl I.V. 50 mcg Versed I.V. 1 mg Fentanyl I.V. 50 mcg Heparin Bolus I.V. 4000 units Fentanyl I.V. 50 mcg Hemodynamics Rest BSA: 2.18 (m2) HGB: 13.7 (g/dl) O2 Consumption: Estimated: 271.9 (ml/min) O2 Con sumption indexed: Estimated:124.72 (ml/min/m) Heart Rate: 97 (bpm) Pressure Samples Time Site Value (mmHg) Purpose Heart Use Rate(bpm) 9:50 LV 81/30,24 Snapshot 89 Snapshots Pre Cath Intra NCS Post Cath Vital Signs Time Heart Resp SPO2 etCO2 NIBP (mmHg) Rhythm Pain Sedation Rate (ipm) (%) (mmHg) Status Level (bpm) 9:03:40 78 17 97 0 131/68(82) NSR 0 (11) 10(A) , No pain 9:07:54 78 18 94 0 133/66(106) NSR 0 (11) 10(A) , No pain 9:12:12 77 17 94 0 103/55(86) NSR 0 (11) 10(A) , No pain 9:16:51 79 17 95 0 124/89(99) NSR 0 (11) 10(A) , No pain 9:21:11 79 17 95 0 65/54(56) NSR 0 (11) 10(A) , No pain 9:26:04 79 18 98 17.5 120/53(69) NSR 0 (11) 10(A) , No pain 9:30:16 78 18 97 27.4 101/62(77) NSR 0 (11) 10(A) , No pain 9:35:15 77 17 95 25.1 132/64(117) NSR 0 (11) 10(A) , No pain 9:40:08 76 17 96 23.5 95/60(82) NSR 0 (11) 10(A) , No pain 9:45:07 90 16 96 15.9 120/65(83) NSR 0 (11) 9(A) , No pain 9:49:19 83 17 96 16.7 129/58(90) NSR 0 (11) 9(A) , No pain 9:53:33 83 18 96 34.2 126/63(82) NSR 0 (11) 9(A) , No pain 9:57:38 88 16 94 35 141/80(109) NSR 0 (11) 9(A) , No pain 10:02:56 91 17 95 41 138/76(98) NSR 0 (11) 9(A) , No pain 10:06:00 94 12 93 26.6 117/74(93) NSR 0 (11) 9(A) , No pain Medications Time Medication Route Dose Verified Delivered Reason Notes Effectiveness by by 9:19:46 Oxygen etCO2 2 Kentrell Alvarez Per physician Nasal l/min José Tobias RN cannula 9:19:53 Heparin Flush added 2 Kentrell Antonio used for Bag to bags José Tobias RN procedure (1000units/500ml field NS) 9:20:03 0.9% NaCl I.V. 100 Kentrell Antonio Per physician ml/hr José Tobias RN 9:20:13 Lidocaine 2% added 20ml Kentrell Yañezy for local to vial José Tobias RN anesthetic field 9:42:59 Fentanyl I.V. 50 Kentrell Antonio for sedation mcg José Tobias RN 9:43:05 Versed I.V. 1 mg Kentrell Antonio for sedation José Tobias RN 9:49:20 Fentanyl I.V. 50 Kentrell Antonio for sedation mcg José Tobias RN 9:49:23 Versed I.V. 1 mg Kentrell Antonio for sedation José Tobias RN 9:52:56 Fentanyl I.V. 50 Kentrell Antonio for sedation mcg José Tobias RN 9:57:07 Heparin Bolus I.V. 4000 Kentrell Antonio for units José Tobias RN anticoagulation 10:05:08 Fentanyl I.V. 50 Kentrell Antonio for sedation mcg José Tobias RN Procedure Log Time Note 8:33:10 Informed consent obtained and on chart 8:33:16 Diagnostic Cath Status : Elective 8:34:06 Lab Result : eGFR NONAFRICAN 67.19061 ml/min 8:34:06 Lab Result : Hemoglobin 13.7 g/dl 8:34:06 Lab Result : BUN 15 mg/dl 8:34:06 Lab Result : Creatinine 1.1 mg/dl 8:35:22 Arrival Date: 03/01/2019 10:55:00 AM 8:35:49 Insurance Payor : Medicare, Medicaid 8:35:50 Admit Source: Other 8:35:59 Patient Height : 72.05 inches 8:36:03 Patient Weight : 211.64 lbs 8:42:12 Gerson SCHREIBER(R) sent for patient. Start room use. 8:45:18 Time tracking: Regular hours (M-F 7:00 - 5:00) 8:45:24 Plan of Care:Hemodynamics will remain stable., Cardiac rhythm will remain stable., Comfort level will be maintained., Respiratory function will remain adequate., Patient/ family verbilizes understanding of procedure., Procedure tolerated without complication., Recovers from procedure without complications.. 8:49:59 Risk of Mortality: 1.1 8:50:02 Risk of blood transfusion: 0.2 8:50:06 Risk of TABBY: 7.3 8:50:19 2) 60-89 Mildly reduced kidney function, and other findings (as for stage 1) point to kidney disease. 8:50:40 Maximum allowable contrast dose (3.7 X eGFR X 0.75)188 ml. 8:53:54 Patient received from Med II to CCL 2 Alert and oriented. Tansferred to table in Supine position. 8:53:55 Correct patient and procedure confirmed by team. 8:53:55 Warm blankets applied, and javad hugger turned on for patient comfort. 8:53:56 ECG and BP/O2 sat monitors applied to patient. 9:01:18 Vital chart was started 9:01:19 Baseline sample Acquired. 9:01:24 Rhythm: sinus rhythm 9:01:25 Full Disclosure recording started 9:01:29 H&P Date Dictated: 03/02/2019 New H&P dictated by physician.. 9:01:30 Pre-op teaching completed and patient verbalized understanding. 9:01:30 Pre-procedure instructions explained to patient. 9:01:32 Family in patients room. 9:01:35 Patient NPO since Midnight. 9:01:36 Is the patient allergic to Iodine/contrast media? No. 9:01:37 Was the patient premedicated? Yes 9:01:39 Is patient on blood thinner?Yes 9:01:41 ACC The patient was administered the following blood thiners within the last 24 hours: ACCPlavix 9:01:44 Patient diabetic? No. 9:01:47 Previous problem with sedation/anesthesia? No ? 9:01:49 Snore? No 9:01:50 Sleep apnea? No 9:01:51 Opens mouth fully? Yes 9:01:51 Deviated septum? No 9:01:52 Sticks out tongue? Yes 9:01:56 Airway obstruction? No ? 9:01:59 Dentures? No ? 9:02:03 Pre procedure: right dorsailis pedis pulse 2+ Normal; easily identifiable; not easily obliterated 9:02:05 Pre procedure: left dorsailis pedis pulse 2+ Normal; easily identifiable; not easily obliterated 9:02:08 Patient pain scale 0/10 ?. 9:02:28 IV patent on arrival in left forearm with 0.9% NaCl at [facility]. 9:02:30 Lab results completed and on chart. 9:02:38 Right groin area was prepped with chlora-prep and draped in sterile fashion 9:02:39 Alarms reviewed by R. N. 9:02:40 Sharps counted by scrub and verified by R.N. 9:19:46 Oxygen 2 l/min etCO2 Nasal cannula was administered by Antonio Tobias RN; Per physician; Verbal order read back and verified. 9:19:53 Heparin Flush Bag (1000units/500ml NS) 2 bags added to field was administered by Antonio Tobias RN; used for procedure; Verbal order read back and verified. 9:20:03 0.9% NaCl 100 ml/hr I.V. was administered by Antonio Tobias RN; Per physician; Verbal order read back and verified. 9:20:13 Lidocaine 2% 20ml vial added to field was administered by Antonio Tobias RN; for local anesthetic; Verbal order read back and verified. 9:30:47 Zero performed for pressure channel P1 9:41:40 --------ALL STOP TIME OUT------ 9:41:40 Physician arrived 9:41:41 Final Timeout: patient, procedure, and site verified with staff and physician. All members of the team are in agreement. 9:41:44 Right groin site verified by team. 9:41:48 Fire Safety Assessment: A--An alcohol-based skin anteseptic being used preoperatively., C--Open oxygen or nitrous oxide is being used., D--An ESU, laser, or fiber-optic light is being used. 9:41:51 Physical assessment completed. ASA score P 2 - A patient with mild systemic disease as per Kentrell Kumar MD. 9:41:56 Sedation plan: IV Moderate Sedation Medication:Versed, Fentanyl 9:42:36 Use device set Femoral Dx 9:42:37 Medline Cath Pack ([id number]) opened to sterile field. 9:42:37 Bag Decanter () opened to sterile field. 9:42:37 ACIST Syringe (45728) opened to sterile field. 9:42:39 ACIST Manifold (45465) opened to sterile field. 9:42:39 ACIST Hand Control (18324) opened to sterile field. 9:42:40 Tegaderm 4 x 4 (1626W) opened to sterile field. 9:42:40 DIAGNOSTIC Multipack 5Fr catheter set (IP6766) opened to sterile field. 9:42:42 EMERALD Guide Wire (502-514) opened to sterile field. 9:42:42 SHEATH 5FR Ogden (IKZ941) opened to sterile field. 9:42:59 Fentanyl 50 mcg I.V. was administered by Antonio Tobias RN; for sedation; Verbal order read back and verified. 9:43:05 Versed 1 mg I.V. was administered by Antonio Tobias RN; for sedation; Verbal order read back and verified. 9:49:07 Procedure started. 9:49:10 Local anesthetic to right femoral artery with Lidocaine 2% by Kentrell Kumar MD.INITIAL ACCESS ONLY 9:49:20 Fentanyl 50 mcg I.V. was administered by Antonio Tobias RN; for sedation; Verbal order read back and verified. 9:49:23 Versed 1 mg I.V. was administered by Antonio Tobias RN; for sedation; Verbal order read back and verified. 9:50:00 A 5 Fr sheath was inserted into the Right Femoral artery 9:50:08 A MULTIPACK Pigtail 5 Fr catheter was advanced over the wire and used for LV Angiography. 9:50:24 LV hemodynamics recorded. 9:50:25 LV gram done using PERDOMO 9:50:27 Injector settings: Ml/sec: 5, Volume: 15, 9:50:35 EF : 40 % 9:50:38 Catheter removed. 9:50:42 A MULTIPACK JL 4.0 5Fr catheter was advanced over the wire and used for Left Coronary Angiography. 9:51:23 LCA angiography performed. 9:51:36 Injector settings: Ml/sec: 3, Volume: 6, 9:51:45 Catheter removed. 9:52:02 A MULTIPACK 3DRC 5Fr catheter was advanced over the wire and used for Right Coronary Angiography. 9:52:51 ARTIS to LAD angiography performed. 9:52:56 Fentanyl 50 mcg I.V. was administered by Antonio Tobias RN; for sedation; Verbal order read back and verified. 9:53:02 Catheter removed. 9:54:27 A DIAGNOSTIC AR2 MOD 5 Fr catheter ([id number]) was advanced over the wire and used for SVG Angiography. 9:54:48 SVG to Circ angiography performed. 9:55:07 SVG to RCA angiography performed. 9:55:23 Injector settings: Ml/sec: 3, Volume: 6, 9:55:32 Catheter removed. 9:55:46 ACCDominant side:Co-Dominant 9:55:54 Proceeding to intervention. 9:56:43 GUIDE 6FR XB 3.5 catheter ([id number]) opened to sterile field. 9:56:45 CHOICE PT Extra Support 182cm wire ([id number]) opened to sterile field. 9:56:46 SHEATH 6FR Ogden (VXB839) opened to sterile field. 9:56:46 INFLATOR Merit BasixCompak (TZ1028) opened to sterile field. 9:56:54 Sheath upsized to a 6 Fr Short. 9:57:07 Heparin Bolus 4000 units I.V. was administered by Antonio Tobias RN; for anticoagulation; Verbal order read back and verified. 9:57:33 Pre PCI Site: [place] LMCA has 90% stenosis. 9:57:41 Pre PCI Site: [place] Ramus has 95% stenosis. 9:57:54 ACC Pre-intervention BRYAN Flow is 3. 9:58:05 6 Fr xb3.5 guide catheter was inserted over the wire 9:58:11 choice pt wire advanced. 9:58:13 Wire advanced across lesion. 10:00:06 Place stent Inflation Number: 1 A DERECK RX 2.0 x 12 stent ([id number]) was prepped and advanced across the Ramus 95. The stent was deployed at 15 HARIS for 0:10 (min:sec) 0. 10:00:50 Stent catheter was removed intact over wire. 10:01:27 Place stent Inflation Number: 1 A DERECK RX 2.5 x 08 stent ([id number]) was prepped and advanced across the LMCA 90. The stent was deployed at 13 HARIS for 0:10 (min:sec) 0. 10:01:48 Guide catheter removed. 10:01:48 Wire removed. 10:01:48 Stent catheter was removed intact over wire. 10:01:54 ACT drawn and resulted at OOR seconds. (normal therapeutic range 180-240 seconds). 10:01:54 EXOSEAL 6Fr (EX600) opened to sterile field. 10:03:54 Sheath removed intact; hemostasis achieved with Exoseal to the Right Femoral artery. 10:03:56 Procedure ended.(Physican Out) 10:04:08 Fluoroscopy time 03.70 minutes. 10:04:11 Fluoroscopy dose: 1161 mGy 10:04:11 Flurop Dose total: 1161 10:04:17 Dose Area Product 39277 mGy/cm. 10:04:23 Contrast amount:Isovue 300 73ml. 10:04:24 Sharps counted by scrub and verified by R.N. 10:04:29 Insertion/operative site no bleeding no hematoma. 10:04:31 Post-op/insertion site Right Femoral artery dressed using a 4 x 4 and Tegaderm. 10:04:38 Post Procedure Pulses reassessed and unchanged 10:04:40 Post procedure rhythm: unchanged. 10:04:47 Estimated blood loss: 5 ml 10:04:48 Post procedure instruction explained to patient.Patient verbalizes understanding. 10:04:49 Patient needs reinforcement of post procedure teaching. 10:05:00 Procedure type changed to Cath procedure, Diagnostic procedure, LHC, LHC w/Coronaries w/Grafts, Sedation Charges, Moderate Sedation up to 30 minutes, PCI procedure, Coronary Stent, Coronary Stent Initial x2 10:05:08 Fentanyl 50 mcg I.V. was administered by Antonio Tobias RN; for sedation; Verbal order read back and verified. 10:05:56 Procedure and supply charges have been captured, reviewed, submitted and are correct. 10:06:07 Procedure Complication : No complications 10:06:37 Vital chart was stopped 10:06:41 [facility] Findings: MVD- PCI performed (see procedure note) 10:06:43 See physician's report for complete and final results. 10:06:43 Operative report dictated upon procedure completion. 10:06:48 Report given to [facility]. 10:06:51 Patient transfered to [facility] with Stretcher. 10:06:53 Full Disclosure recording stopped 10:06:53 Procedure ended. 10:07:02 ACC-PCI Only Patient was given prescriptions, or instructed by Kentrell Kumar MD to start/continue the following medications upon discharge: Plavix 10:07:08 End room use (Document Last) 10:08:51 End room use (Document Last) 10:09:39 End room use (Document Last) Intervention Summary Intervention Notes Time ActionType Lesion and Equipment Used Action# Pressure Duration Attributes 10:00:[address] Place stent Ramus DERECK RX 2.0 x 1 15 00:10 12 stent ([id number]) 10:01:27 Place stent LMCA DERECK RX 2.5 x 1 13 00:10 08 stent ([id number]) Device Usage Item Name Manufacture Quantity Catalog Number Hospital Part Current M inimal Lot# / Charge Number Stock Stock Serial# Code ACIST Syringe Acist 1 79614 025450 477685 484563 2 0 (54421) Medical Systems Inc Bag Decanter Microtek 1 2001S 725109 46598 858448 5 (2001S) Medical Inc. Medline Cath Medline 1 [id number] 224214 64557 026692 5 Pack ([id number]) ACIST Hand Acist 1 94951 549773 670791 526078 5 Control Medical (37554) Systems Inc ACIST Manifold Acist 1 94811 260126 845713 550505 5 (76369) Medical Systems Inc DIAGNOSTIC Cardinal 1 WA6316 432940 10982 780034 3 0 Multipack 5Fr Health catheter set (VC5534) Tegaderm 4 x 4 3M 1 1626W 159000 105296 793659 5 (1626W) SHEATH 5FR Terumo 1 DTI407 768309 690523 527861 5 Ogden (MIV569) EMERALD Guide Cardinal 1 502-455 675813 241998 372628 5 Wire (502-455) Health MULTIPACK Cardinal 1 093557 5 Pigtail 5 Fr Health catheter MULTIPACK JL Cardinal 1 349186 5 4.0 5Fr Health catheter MULTIPACK 3DRC Cardinal 1 208268 5 5Fr catheter Health DIAGNOSTIC AR2 Cardinal 1 [id number] 168066 573776 492364 2 0 MOD 5 Fr Health catheter (532402X) GUIDE 6FR XB Cardinal 1 50601662 390158 120379 762241 2 3.5 catheter Health (48494859) CHOICE PT Florence 1 [id number] 529522 946420 449040 5 Extra Support Scientific 182cm wire ([id number]) INFLATOR Merit Merit 1 XI5735 251335 956268 018263 1 5 [facility] (BY8704) SHEATH 6FR Terumo 1 UEO860 954941 003771 724985 4 0 Ogden (SAI571) DERECK RX 2.0 x Medtronic 1 [id number] 759836 2792620 337514 5 [id number] 12 stent ([id number]) DERECK RX 2.5 x Medtronic 1 [id number] 879452 6185610 339860 5 [id number] 08 stent ([id number]) EXOSEAL 6Fr Cardinal 1 EX600 865493 425624 504654 1 0 (EX600) Health Signature Audit [place] Stage Time Signature Unsigned Intra-Procedure 03/02/2019 Brigid Odonnell 10:08:51 AM RT(R) Intra-Procedure 03/02/2019 Antonio Tobias 10:09:39 AM RN Intra-Procedure 03/02/2019 Kentrell Kumar MD 10:10:09 AM 03/02/2019 10:11:45 AM Intra-Procedure 03/02/2019 Kentrell Kumar 10:13:03 AM Signatures Monitor : Brigid Odonnell RT Signature : Date : Time : Nurse : Antonio Tobias RN Signature : Date : Time : Performing Physician : Signature : Kentrell Kumar MD Date : Time : Nurse : Ismael Lorigan Signature : RN Date : Time : [place] [address] [place] [address]
--- NOTE | ~2019-03-01 | OP ---
PATIENT NAME: KRISTAL VUONG MEDICAL RECORD: [id number] :38 LOCATION:D.M2 D.2118 ADMISSION DATE:03/01/19 SURGEON: PROSPER YOUSIF MD DATE OF OPERATION: 03/02/2019 DATE OF SERVICE: 03/02/2019 PROCEDURES: 1. PTCA stent left circumflex, ramus intermedius. 2. PTCA stent, left main. 3. Selective coronary angiography. 4. Vein graft angiography. 5. ARTIS angiography. 6. Left heart catheterization. 7. Left ventriculogram. INDICATION: Unstable angina, coronary artery disease, congestive heart failure. PROCEDURE PERFORMED: After informed consent was obtained and after detailed description of risks, benefits as well as alternative therapies, the patient elected to proceed with angiogram and angioplasty. The right femoral area was prepped and draped in normal sterile fashion. Right femoral artery was cannulated via modified Seldinger technique with placement of 6-Belarusian sheath. All catheters exchanged through this sheath. FINDINGS: Left ventriculogram was performed in standard 30-degree PERDOMO view, reveals mild global hypokinesis, ejection fraction 40%. SELECTIVE CORONARY ANGIOGRAPHY: 1. Left main is with a 90% stenosis. 2. This feeds a ramus intermedius that is non-grafted, this has a 90% stenosis as well. 3. The left anterior descending is totally occluded. 4. Left circumflex is totally occluded. 5. ARTIS is closed. 6. There is a vein graft that feeds the circumflex and LAD diagonal. This is patent. The LAD has multiple areas of at least 70% stenosis, but due to the angulation of the vein graft going back to the diagonal, going back to the LAD, this is not approachable via transcatheter approach. 7. Left circumflex after the vein graft is atretic, very large, but widely patent. 8. Right coronary is totally occluded. 9. Vein graft to the right coronary is widely patent. Distal right coronary is mildly diffusely diseased, but widely patent. PTCA STENT OF THE LEFT MAIN AND RAMUS INTERMEDIUS: Ramus was addressed with a 2.25 x 12 mm Carl[place], left main with a 2.5 x 8 mm [place]. Result was 0% residual stenosis. OVERALL IMPRESSION: Successful percutaneous transluminal coronary angioplasty stent of the left main and ramus intermedius, both going from 90% initial stenosis to 0% residual. TRANSINT:[id number] Voice Confirmation ID: [id number] DOCUMENT ID: [id number] OPERATIVE REPORT [id number] KRISTAL VUONG JEFFREY MD CC: [id number] DICTATION DATE: 03/02/19 1012 PULP MAKER: 03/02/[address] [facility] [address] [place] [address]
[~2019-03-01 09:35] MED LIST changes: +IBUPROFEN800 MG PO; +ISOSORBIDE MONO60 M1 PO; +NITROSTAT0.4 MG SL; +NORVASC5 MG PO; +RANITIDINE HCL150 M1 PO; +VITAMIN D31000 UNIT PO; +ZYRTEC10 MG PO
[2019-03-01] MEDS ORDERED: MECLIZINE HCL25 MG PO (09:54)
[2019-03-01] MEDS ORDERED: PEPCID AC20 MG PO (09:55)
[2019-03-01 10:15] LABS: BASOPHILS 0.2 % (0-2); EOSINOPHILS 4.4 % (0-7); HEMATOCRIT 41.1 % (42.0-54.0); HEMOGLOBIN 13.7 g/dL (13.5-17.5); IMMATURE GRANULOCYTES 0.2 % (0-5); MCH 33.2 pg (26.0-34.0); MCHC 33.3 g/dL (31.0-37.0); MCV 99.5 fL (80.0-100.0); MEAN PLATELET VOLUME 12.9 fL (7.4-10.4); MONOCYTES 8.7 % (2-11); NEUTROPHILS 58.5 % (40-80); PLATELET COUNT 161 10x3/uL (130-400); RBC 4.13 10x6/uL (4.20-6.10); RDW 13.6 % (11.5-14.5); WBC 5.2 10x3/uL (4.8-10.8)
[2019-03-01 10:24] LABS: CALC OSMOLALITY 281 mosm/kg (275-300); CARBON DIOXIDE 27.2 mmol/L (21.0-32.0); CHLORIDE - SERUM 106 mmol/L (98-107); CREATININE - SERUM 1.1 mg/dL (0.6-1.3); GLUCOSE 100 mg/dL (74-106); POTASSIUM - SERUM 4.6 mmol/L (3.5-5.1); SODIUM 141 mmol/L (136-145); UREA NITROGEN 15 mg/dL (7-18); eGFR NON AFRICAN AMERICAN 68 mL/min (90-120)
[2019-03-01 10:31] LABS: INR 1.09 (0.85-1.17); PROTIME 13.6 SECONDS (11.6-15.0)
[2019-03-01 10:41] LABS: ALBUMIN 3.5 g/dL (3.4-5.0); ALKALINE PHOSPHATASE 83 U/L (46-116); ALT (SGPT) 30 U/L (10-68); BILIRUBIN - TOTAL 0.74 mg/dL (0.2-1.3); CKMB 1.2 U/L (0.0-3.6); CREATINE KINASE 60 UL (21-232); PRO BNP 2538 pg/mL (0-450); PROTEIN - SERUM 6.9 g/dL (6.4-8.2); TROPONIN-I < 0.017 ng/mL (0.000-0.060)
--- NOTE | 2019-03-01 11:49 | MORECARE ---
CASE MANAGEMENT DISCHARGE SUMMARY PATIENT: KRISTAL VUONG UNIT: [id number] ADM DATE: 03/01/19 AGE: 78 : 39 SEX: M ROOM/BED: D.2118 AUTHOR: MARIA VICTORIA EDUARDO PHYSICIAN: REFERRING PHYSICIAN: LUÍS PHILLIPS MD DATE OF SERVICE: 03/01/19 Discharge Plan Patient Name: KRISTAL VUONG [facility] [facility] 1940 Planned Disposition: Anticipated Discharge Date: Discharge Date: Expected LOS: Initial Reviewer: [email or web address] Initial Review Date: 03/01/2019 Generated: 03/01/19 12:48 pm Patient Name: KRISTAL VUONG Page 26856 at 1149 All edits/amendments must be made on the electronic document DICTATION DATE: 03/01/19 1148 WASTEWATER PROJECT MANAGER: JAG 03/01/19 1148 RPT#: [id number] DC DATE: STATUS: ADM IN [facility] [address] [place] [address] END OF REPORT
--- NOTE | 2019-03-01 11:58 | MORECARE ---
CASE MANAGEMENT DISCHARGE SUMMARY PATIENT: KRISTAL VUONG UNIT: [id number] ADM DATE: 03/01/19 AGE: 78 : 39 SEX: M ROOM/BED: D.2118 AUTHOR: MARIA VICTORIA EDUARDO PHYSICIAN: REFERRING PHYSICIAN: LUÍS PHILLIPS MD DATE OF SERVICE: 03/01/19 Discharge Plan Patient Name: KRISTAL VUONG [facility] [facility] 1940 Planned Disposition: Anticipated Discharge Date: Discharge Date: Expected LOS: Initial Reviewer: [email or web address] Initial Review Date: 03/01/2019 Generated: 03/01/19 12:58 pm DCPIA - Discharge Planning Initial Assessment Updated by [email or web address]: Serena Churchill on 03/01/19 11:52 am * Is the patient Alert and Oriented? Yes * How many steps to enter\exit or inside your home? 0/7 w/rail * PCP Dr. Gibson * Pharmacy [facility] * Preadmission Environment Home with Family * ADLs Independent * Equipment None * Other Equipment NA * List name and contact numbers for known caregivers / representatives who currently or will assist patient after discharge: Alissa Montoya (dtr) [phone], H [phone] Rosanna Robles (dtr) [phone] * Community resources currently utilized None * Please name any agencies selected above. NA * Additional services required to return to the preadmission environment? No * Can the patient safely return to the preadmission environment? Yes * Has this patient been hospitalized within the prior 30 days at any hospital? No Last DP export: 03/01/19 10:49 Patient Name: KRISTAL VUONG Page 58052 at 1158 All edits/amendments must be made on the electronic document DICTATION DATE: 03/01/191157 CREDIT RISK OFFICER: JAG 03/01/198 RPT#: [id number] DC DATE: STATUS: ADM IN [facility] [address] [place] [address] END OF REPORT
--- NOTE | 2019-03-01 12:06 | MORECARE ---
CASE MANAGEMENT DISCHARGE SUMMARY PATIENT: KRISTAL PIMENTEL UNIT: [id number] ADM DATE: 03/01/19 AGE: 78 : 39 SEX: M ROOM/BED: D.0256 AUTHOR: JAYCEDOC PHYSICIAN: REFERRING PHYSICIAN: LUÍS PHILLIPS MD DATE OF SERVICE: 03/01/19 Discharge Plan Patient Name: KRISTAL PIMENTEL Facility: [facility]:[place] : 1940 Planned Disposition: Anticipated Discharge Date: Discharge Date: Expected LOS: Initial Reviewer: [email or web address] Initial Review Date: 03/01/2019 Generated: 03/01/19 1:05 pm Comments DCP- Discharge Planning Updated by [email or web address]: Serena Churchill on 03/01/19 11:[address] CM met with patient to discuss initial discharge planning. Patient is in agreement to proceed with assessment with spouse, Rosa present. Patient is alert/oriented. Patient lives with his , Leslie Pimentel. Stairs/steps: Level from garage entry, 7 steps w/rail off patio. PCP: Dr. Gibson. Pharmacy: [facility]. Patient states they have been able to obtain all of their prescribed medications. HHS: No. DME: No. Patient gives permission to speak with family members/care givers. Emergency contact: Rosa Pimentel () [phone]. Patient is independent with ADL's and medication management. CM discussed the availability of HH, Rehab, DME services. Patient denies the need for additional services at this time and feels safe returning to previous environment. Patient denies being hospitalized within the past 30 days. Patient denies the use of community resources [employer]. Transportation at time of discharge will be his , Rosa. CM will assist with DC needs PRN. DCPIA - Discharge Planning Initial Assessment Updated by [email or web address]: Serena Churchill on 03/01/19 11:52 am * Is the patient Alert and Oriented? Yes * How many steps to enter\exit or inside your home? 0/7 w/rail * PCP Dr. Gibson * Pharmacy [facility] * Preadmission Environment Home with Family * ADLs Independent * Equipment None * Other Equipment NA * List name and contact numbers for known caregivers / representatives who currently or will assist patient after discharge: Alissa Montoya (dtr) [phone], H [phone] Rosanna Robles (dtr) [phone] * Community resources currently utilized None * Please name any agencies selected above. NA * Additional services required to return to the preadmission environment? No * Can the patient safely return to the preadmission environment? Yes * Has this patient been hospitalized within the prior 30 days at any hospital? No Last DP export: 03/01/19 10:58 Patient Name: KRISTAL PIMENTEL Page 43572 at 1206 All edits/amendments must be made on the electronic document DICTATION DATE: 03/01/191205 COMMERCIAL UNDERWRITER: JAG 03/01/191205 RPT#: [id number] DC DATE: STATUS: ADM IN [facility] [address] [place] [address] END OF REPORT
[2019-03-01 13:19] VITALS: BP 119/78
--- NOTE | 2019-03-01 13:29 | NUR ---
PATIENT ARRIVED FROM THE ER. PLACED TELEMETRY ON CHEST. HAVE COMPLETED HISTORY AND QUICK START AND MEDICATION REC. PATIENT SIGNED CONSENTS FOR HEART CATH WITH DR YOUSIF ON THE February.
[2019-03-01 15:12] LABS: CKMB 1.2 U/L (0.0-3.6); CREATINE KINASE 54 UL (21-232); TROPONIN-I < 0.017 ng/mL (0.000-0.060)
--- NOTE | 2019-03-01 15:25 | CN ---
PATIENT NAME:KRISTAL VUONG MEDICAL RECORD: [id number] : 38 LOCATION:D. D.2118 ADMIT DATE: 03/01/19 ACCOUNT: [id number] CONSULTING PHYSICIAN: PROSPER YOUSIF MD REFERRING PHYSICIAN: LUÍS PHILLIPS MD DATE OF CONSULTATION: 03/01/2019 CARDIOLOGY CONSULTATION DIAGNOSES: 1. Unstable angina. 2. Coronary artery disease. 3. Recent percutaneous transluminal coronary angioplasty stent. 4. Status post coronary artery bypass graft surgery. 5. Recent myocardial infarction. 6. Congestive heart failure. 7. Hypertension. 8. Hyperlipidemia. 9. Shortness of breath, dyspnea on exertion. HISTORY OF PRESENT ILLNESS: This is a gentleman with a past history of coronary artery disease, status post coronary artery bypass graft surgery who presented last month with a myocardial infarction. He underwent PTCA stent by Dr. Tompkins with a non-optimal result, continued thrombus burden throughout the circumflex after PTCA stent. He did relatively well until the last week. He has had increasing shortness of breath and he began having increasing episodes of chest pain. He is having episodes of chest pain at rest today. Hence, it progressed to class IV symptomatology. His chest x-ray is compatible with pulmonary edema. His BMP is elevated, compatible with congestive heart failure. He; however, had a normal ejection fraction at the time of the intervention. He is on optimal medical therapy with calcium channel liliana, beta liliana and a long-acting nitrate, but continues to have progression of his symptoms. PHYSICAL EXAMINATION: CONSTITUTIONAL/GENERAL APPEARANCE: Well nourished, well developed, appears stated age. EYES: Lids and conjunctivae noninjected. No discharge. No pallor. ENT: Lips within normal limit. No cyanosis. No pallor. NECK: Carotid arteries, bilateral normal upstroke. No bruits. No thrills. No jugular venous pressure or distention. CERVICAL LYMPH NODES: Nontender. Nonenlarged. THYROID: Not enlarged. No nodules. CARDIOVASCULAR: Precordial exam, nondisplaced. No heaves or pericardial thrills. Rate and rhythm, regular. Heart sounds, normal S1, normal S2. No S3, no gallop, no rub. Systolic murmur, not heard. Diastolic murmur, not heard. RESPIRATORY: Respiratory effort, unlabored. Normal curvature. No thoracic deformity. No chest wall tenderness. Percussion, resonant. Auscultation, clear. No wheezes, no rales, no rhonchi. ABDOMEN: Soft, nondistended, nontender. No abdominal pain, no vomiting and normal appetite. MUSCULOSKELETAL: No joint tenderness, normal gait, normal tone. SKIN: Warm and dry. ASSESSMENT AND PLAN: A 12-lead ECG shows T-wave inversions in the lateral leads suggestive of ongoing ischemia. At this time, we will diurese him, get an CONSULT REPORT [id number] KRISTAL VUONG echocardiogram today for his ejection fraction now and proceed with coronary angiography in the a.m. TRANSINT:[id number] Voice Confirmation ID: [id number] DOCUMENT ID: [id number] PROSPER YOUSIF MD at 1525 CC: [id number] DICTATION DATE: 03/01/19 1230 CLOTHES DRIER ASSEMBLER: 03/01/19 1452 ADM IN [facility] [address] [place] [address]
[2019-03-01 16:36] VITALS: BP 119/78; BMI 26.9
[2019-03-01 18:10] VITALS: BP 131/87
[2019-03-01 18:33] LABS: APPEARANCE CLEAR (CLEAR); BILIRUBIN NEGATIVE (NEGATIVE); COLOR STRAW (YELLOW); GLUCOSE NEGATIVE (NEGATIVE); KETONE NEGATIVE (NEGATIVE); NITRITE NEGATIVE (NEGATIVE); PROTEIN NEGATIVE (NEGATIVE); SPECIFIC GRAVITY 1.005 (1.005-1.020); UROBILINOGEN NORMAL (NORMAL)
--- NOTE | 2019-03-01 19:50 | NUR ---
RECEIVED BEDSIDE REPORT. PATIENT IS ALERT AND ORIENTED, RESTING COMFORTABLY IN BED. RESPIRATIONS ARE EVEN AND UNLABORED. NO S/S OF DISTRESS. NO C/O PAIN. CALL LIGHT WITH IN REACH. DENIES NEEDS. WILL CPOC.
[2019-03-01 20:00] VITALS: BP 119/52
[2019-03-01 20:40] LABS: CKMB 1.2 U/L (0.0-3.6); CREATINE KINASE 58 UL (21-232); TROPONIN-I < 0.017 ng/mL (0.000-0.060)
[2019-03-02] VITALS: BP 108/69
[2019-03-02 04:00] VITALS: BP 117/58
[2019-03-02 04:44] LABS: BASOPHILS 0 % (0-2); EOSINOPHILS 4.9 % (0-7); HEMATOCRIT 41.6 % (42.0-54.0); HEMOGLOBIN 13.8 g/dL (13.5-17.5); IMMATURE GRANULOCYTES 0.2 % (0-5); LYMPHOCYTES 33.7 % (15-50); MCH 32.9 pg (26.0-34.0); MCHC 33.2 g/dL (31.0-37.0); MEAN PLATELET VOLUME 12.7 fL (7.4-10.4); MONOCYTES 10.8 % (2-11); NEUTROPHILS 50.4 % (40-80); PLATELET COUNT 150 10x3/uL (130-400); RDW 13.3 % (11.5-14.5); WBC 5.7 10x3/uL (4.8-10.8)
[2019-03-02 05:15] LABS: CALC OSMOLALITY 280 mosm/kg (275-300); CALCIUM 8.9 mg/dL (8.5-10.1); CARBON DIOXIDE 27.3 mmol/L (21.0-32.0); CHLORIDE - SERUM 105 mmol/L (98-107); CKMB 1.2 U/L (0.0-3.6); CREATINE KINASE 59 UL (21-232); GLUCOSE 92 mg/dL (74-106); SODIUM 140 mmol/L (136-145); TROPONIN-I < 0.017 ng/mL (0.000-0.060); UREA NITROGEN 17 mg/dL (7-18); eGFR NON AFRICAN AMERICAN 76 mL/min (90-120)
[2019-03-02 05:20] LABS: POTASSIUM - SERUM 3.8 mmol/L (3.5-5.1)
--- NOTE | 2019-03-02 05:24 | NUR ---
CONSENTS SIGNED. PATIENT PREPPED AND CLIPPED BY TIERNEY
--- NOTE | 2019-03-02 07:10 | NUR ---
REPORT RECEIVED FROM PIPE CLEANING MACHINE OPERATOR AND PATIENT CARE ASSUMED. PATIENT LAYING IN BED ON BACK AWAKE, ALERT AND ORIENTED X 4. PATIENT IS STABLE ANDVSS. PATIENT DENIES ANY NEEDS OR PAIN. WILL CONTINUE WITH PLAN OF CARE. AT BS. SR UP X 2 BED IN LOW POSITION AND CALL LIGHT IN REACH.
--- NOTE | 2019-03-02 08:45 | NUR ---
RECEIEVED CALL FROM LETTER OF CREDIT CLERK TO PREOP PATIENT. PATIENT GIVEN PREOP MEDS PER MAR ORDERS. PATIENT TOLERATED WELL. AT BS. WILL CONTINUE TO MONITOR. SR UP X 2 BED IN LOW POSITION AND CALL LIGHT IN REACH,
[2019-03-02 09:06] VITALS: BP 112/70
--- NOTE | 2019-03-02 09:15 | NUR ---
PATIENT IS STABLE AND VSS. PATIENT TO OIL FIELD RIG BUILDER VIA HISPITAL BED AND OIL FIELD RIG BUILDER PERSONNEL.
--- NOTE | 2019-03-02 11:00 | NUR ---
PATIENT RETURNED TO ROOM VIA HOSPITAL BED AND COGENERATION TECHNICIAN TEAM. PATIENT IS AWAKE AND ALERT. DRSG TO RT JONY C/D/I/ NO BLEEDING , BRUISING OR HEMATOMA NOTED. PEDAL PULSES INTACT. PATIENT DENIES ANY PAIN OR NEEDS. FREQUENT VITALS SET UP. VSS. AT BS. WILL CONTINUE TO MONITOR.
[2019-03-02 12:13] VITALS: Ht 182.9 cm; Wt 89.8 kg
--- NOTE | 2019-03-02 12:30 | NUR ---
PATIENT IS STABLE AND VSS. RT GROIN DRSG C/D/I. PEDAL PULSES INTACT. WILL CONTINUE TO MONITOR. AT BS. SR UP X 2 BED IN LOW POSITION AND CALL LIGHT IN REACH.
--- NOTE | 2019-03-02 14:43 | NUR ---
PATIENT LAYING IN BED ON BACK VISITING WITH FAMILY. RT LAVERN JONES C/D/I. INFORMED PATIENT THAT HE CAN BEND LEG AND WALK TO BR. AT BS. WILL CONTINUE TO MONITOR. SR UP X 2 BED IN LOW POSITION AND CALL LIGHT IN REACH.
--- NOTE | 2019-03-02 18:33 | NUR ---
PATIENT IS STABLE AND VSS. PATIENT RESTING COMFORTABLY VISITNG WITH FAMILY. RT GROIN DRSG C/D/I. PEDAL PULSES PRESENT. PATIENT DENIES ANY NEEDS OR PAIN. WILL CONTINUE TO MONITOR. SR UP X 2 BED IN LOW POSITION AND CALL LIGHT INREACH.
--- NOTE | 2019-03-02 19:30 | NUR ---
REPORT AND INITIAL ROUNDS COMPLETED. PT RESTING IN BED. RIGHT GROIN ASSESSED. DRESSING IN PLACE C/D/I. ALERT/ORIENTED. CPOC. CALL LIGHT IN REACH.
[2019-03-02 20:30] VITALS: BP 124/67
[2019-03-03 00:30] VITALS: BP 117/65
[2019-03-03 05:05] LABS: BASOPHILS 0.2 % (0-2); EOSINOPHILS 4.1 % (0-7); HEMATOCRIT 45.5 % (42.0-54.0); IMMATURE GRANULOCYTES 0.3 % (0-5); LYMPHOCYTES 25.9 % (15-50); MCH 32.8 pg (26.0-34.0); MCV 99.6 fL (80.0-100.0); MEAN PLATELET VOLUME 12.4 fL (7.4-10.4); NEUTROPHILS 54.5 % (40-80); PLATELET COUNT 144 10x3/uL (130-400); RBC 4.57 10x6/uL (4.20-6.10); RDW 13.3 % (11.5-14.5); WBC 6.1 10x3/uL (4.8-10.8)
[2019-03-03 05:38] LABS: CALC OSMOLALITY 284 mosm/kg (275-300); CALCIUM 9.1 mg/dL (8.5-10.1); CARBON DIOXIDE 27.6 mmol/L (21.0-32.0); CHLORIDE - SERUM 105 mmol/L (98-107); GLUCOSE 106 mg/dL (74-106); POTASSIUM - SERUM 4.2 mmol/L (3.5-5.1); SODIUM 142 mmol/L (136-145); UREA NITROGEN 19 mg/dL (7-18); eGFR NON AFRICAN AMERICAN 76 mL/min (90-120)
--- NOTE | 2019-03-03 06:39 | NUR ---
PT RESTING IN BED WITH NO DISTRESS. NO CHANGE FROM INITIAL SHIFT ASSESSMENT. CPOC. REPORT TO ONCOMING SHIFT.
[2019-03-03 06:42] VITALS: BP 113/66
--- NOTE | 2019-03-03 07:10 | NUR ---
REPORT RECEVED FROM EDUCATION PROFESSIONAL AND PATIENT CARE ASSUMED . PATIENT SITTING UP IN BEDSIDE CHAIR AWAKE, ALERT AND ORIENTED X 4. PATIENT IS STABLE AND VSS. PATIENT DENIES ANY NEEDS OR PAIN. BROUGHT A CUP OF COFFEE TO PT. WILL CONTINUE WITH PLAN OF CARE. CALL LIGHT IN REACH.
[2019-03-03 08:06] VITALS: BP 125/68
--- NOTE | 2019-03-03 11:10 | NUR ---
PATIENT IS STABLE AND VSS. PATIENT DENIES ANY NEEDS OR PAIN. AND DTR AT BEDSIDE. ORDERS RECEIVED FOR DC. WRITTEN AND VERBAL INSTRUCTIONS GIVEN TO PATIENT AND FAMILY. ALL VERBALIZED UNDERSTANDING AND PATIENT SIGNED PAPERWORK. IV DCD WITHOUT DIFFICULTY WITH ENTIRE CATHETER INTACT. PATIENT IS DCD HOME FOR SELF CARE. PATIENT TO FRONT DOOR VIA WC ACCOMPANIED BY HOSPITAL PERSONNEL. PATIENT TO PRIVATE VEHICLE DRIVEN BY SPOUSE.
--- NOTE | 2019-03-03 15:30 | MORECARE ---
CASE MANAGEMENT DISCHARGE SUMMARY PATIENT: KRISTAL PIMENTEL UNIT: [id number] ADM DATE: 03/01/19 AGE: 78 : 39 SEX: M ROOM/BED: D.9510 AUTHOR: JAYCE,DOC PHYSICIAN: REFERRING PHYSICIAN: LUÍS PHILLIPS MD DATE OF SERVICE: 03/03/19 Discharge Plan Patient Name: KRISTAL PIMENTEL Facility: [facility]:[place] : 1940 Planned Disposition: Anticipated Discharge Date: Discharge Date: 03/03/2019 Expected LOS: Initial Reviewer: [email or web address] Initial Review Date: 03/01/2019 Generated: 03/03/19 4:29 pm DCP- Discharge Planning Updated by [id number]: Serena Churchill on 03/01/19 11:[address] CM met with patient to discuss initial discharge planning. Patient is in agreement to proceed with assessment with spouse, Rosa present. Patient is alert/oriented. Patient lives with his , Leslie Pimentel. Stairs/steps: Level from garage entry, 7 steps w/rail off patio. PCP: Dr. Gibson. Pharmacy: [facility]. Patient states they have been able to obtain all of their prescribed medications. HHS: No. DME: No. Patient gives permission to speak with family members/care givers. Emergency contact: Rosa Pimentel () [phone]. Patient is independent with ADL's and medication management. CM discussed the availability of HH, Rehab, DME services. Patient denies the need for additional services at this time and feels safe returning to previous environment. Patient denies being hospitalized within the past 30 days. Patient denies the use of community resources [facility]. Transportation at time of discharge will be his , Rosa. CM will assist with DC needs PRN. DCPIA - Discharge Planning Initial Assessment Updated by [id number]: Serena Churchill on 03/01/19 11:52 am * Is the patient Alert and Oriented? Yes * How many steps to enter\exit or inside your home? 0/7 w/rail * PCP Dr. Gibson * Pharmacy [facility] * Preadmission Environment Home with Family * ADLs Independent * Equipment None * Other Equipment NA * List name and contact numbers for known caregivers / representatives who currently or will assist patient after discharge: Alissa Montoya (dtr) [phone], H [phone] Rosanna Robles (dtr) [phone] * Community resources currently utilized None * Please name any agencies selected above. NA * Additional services required to return to the preadmission environment? No * Can the patient safely return to the preadmission environment? Yes * Has this patient been hospitalized within the prior 30 days at any hospital? No Last DP export: 03/01/19 11:06 Patient Name: KRISTAL PIMENTEL Page [phone] at 1530 All edits/amendments must be made on the electronic document DICTATION DATE: 03/03/191528 EDUCATIONAL PSYCHOLOGIST: JAG 03/03/191528 RPT#: [id number] DC DATE:03/03/19 STATUS: DIS IN [facility] [address] [place] [address] END OF REPORT
== END 2019-03-03 11:31 | disposition home or self-care (01) | DRG 246 ==
LOC: D.ER 09:35 → D.M2 10:55
PROVIDERS: Emergency Medicine; Internal Medicine Interventional Cardiology; ADMIT Internal Medicine Nephrology; ATTEND Internal Medicine Nephrology
PROC: B2121ZZ Fluoroscopy of Single Coronary Artery Bypass Graft using Low Osmolar Contrast (ICD-10-PCS; 2019-03-02)
PROC: B2151ZZ Fluoroscopy of Left Heart using Low Osmolar Contrast (ICD-10-PCS; 2019-03-02)
PROC: B2111ZZ Fluoroscopy of Multiple Coronary Arteries using Low Osmolar Contrast (ICD-10-PCS; 2019-03-02)
PROC: 027135Z Dilation of Coronary Artery, Two Arteries with Two Drug-eluting Intraluminal Devices, Percutaneous Approach (ICD-10-PCS; principal; 2019-03-02 13:00)
PROC: 4A023N7 Measurement of Cardiac Sampling and Pressure, Left Heart, Percutaneous Approach (ICD-10-PCS; 2019-03-02 13:00)
DX: I25.110 Atherosclerotic heart disease of native coronary artery with unstable angina pectoris (principal); I50.31 Acute diastolic (congestive) heart failure; I11.0 Hypertensive heart disease with heart failure; E78.5 Hyperlipidemia, unspecified; N40.0 Benign prostatic hyperplasia without lower urinary tract symptoms; M81.0 Age-related osteoporosis without current pathological fracture; I25.2 Old myocardial infarction

== ENCOUNTER 2019-05-08 00:58 | Inpatient (IN) | payer MEDICARE, OTHER ==
[~2019-05-08] VITALS: Ht 182.9 cm; Wt 96.7 kg
[~2019-05-08 00:58] MED LIST changes: +MECLIZINE HCL25 MG PO; -METOPROLOL TAR100 M1 PO; +METOPROLOL TART25 MG PO; +PEPCID AC20 MG PO
[2019-05-08] MEDS ORDERED: MECLIZINE HCL25 MG PO (01:06)
[2019-05-08] MEDS ORDERED: NITROSTAT0.4 MG SL (01:07)
[2019-05-08] MEDS ORDERED: K-TAB10 MEQ PO (01:09)
[2019-05-08] MEDS ORDERED: LASIX40 MG PO (01:09)
[2019-05-08 01:41] LABS: BASOPHILS 0.1 % (0-2); EOSINOPHILS 1.1 % (0-7); HEMOGLOBIN 11.3 g/dL (13.5-17.5); IMMATURE GRANULOCYTES 0.7 % (0-5); LYMPHOCYTES 21.9 % (15-50); MCH 32.4 pg (26.0-34.0); MCHC 34.2 g/dL (31.0-37.0); MCV 94.6 fL (80.0-100.0); MEAN PLATELET VOLUME 11.4 fL (7.4-10.4); MONOCYTES 6.6 % (2-11); NEUTROPHILS 69.6 % (40-80); PLATELET COUNT 163 10x3/uL (130-400); RBC 3.49 10x6/uL (4.20-6.10); RDW 12.6 % (11.5-14.5); WBC 7.3 10x3/uL (4.8-10.8)
[2019-05-08 01:49] LABS: CALC OSMOLALITY 289 mosm/kg (275-300); CALCIUM 8.6 mg/dL (8.5-10.1); CARBON DIOXIDE 24.4 mmol/L (21.0-32.0); CHLORIDE - SERUM 103 mmol/L (98-107); CREATININE - SERUM 0.9 mg/dL (0.6-1.3); POTASSIUM - SERUM 4.5 mmol/L (3.5-5.1); SODIUM 138 mmol/L (136-145); UREA NITROGEN 34 mg/dL (7-18); eGFR NON AFRICAN AMERICAN 86 mL/min (90-120)
[2019-05-08 01:50] LABS: GLUCOSE 201 mg/dL (74-106)
[2019-05-08 01:51] LABS: INR 1.1 (0.85-1.17); PROTIME 14.1 SECONDS (11.6-15.0)
[2019-05-08 01:52] LABS: APTT 26.7 SECONDS (22.8-39.4)
--- NOTE | 2019-05-08 01:54 | NUR ---
URINE AND FLU SWAB TO LAB.
[2019-05-08 02:07] LABS: ALKALINE PHOSPHATASE 65 U/L (30-120); ALT (SGPT) 19 U/L (10-68); BILIRUBIN - TOTAL 0.63 mg/dL (0.2-1.3); CKMB 1.3 U/L (0.0-3.6); CREATINE KINASE 65 UL (21-232); LIPASE 73 U/L (73-393); MAGNESIUM - SERUM 1.7 mg/dL (1.8-2.4); PROTEIN - SERUM 6.5 g/dL (6.4-8.2)
[2019-05-08 02:08] LABS: TROPONIN-I < 0.017 ng/mL (0.000-0.060)
[2019-05-08 02:22] LABS: GLUCOSE 100 mg/dL (NEGATIVE); KETONE MODERATE mg/dL (NEGATIVE); NITRITE NEGATIVE (NEGATIVE)
[2019-05-08 02:23] LABS: BILIRUBIN NEGATIVE (NEGATIVE); UROBILINOGEN NORMAL (NORMAL)
[2019-05-08 02:24] LABS: BACTERIA FEW /hpf (NEGATIVE); EPITHELIAL CELLS 0-5 /hpf (0-5); RED CELLS - URINE 0-5 /hpf (0-5); WHITE CELLS - URINE 0-5 /hpf (NEGATIVE)
--- NOTE | 2019-05-08 02:30 | NUR ---
PT PROVIDED WARM BLANKETS FOR COMFORT. PT RESTING ON BED. PT DENIES NAUSEA
[2019-05-08 03:00] VITALS: BP 113/52
--- NOTE | 2019-05-08 03:40 | NUR ---
PT LEFT ED VIA STRETCHER FOR CT.
--- NOTE | 2019-05-08 03:58 | NUR ---
PT RETURNED FROM CT VIA STRETCHER.
--- NOTE | 2019-05-08 05:13 | NUR ---
PATIENT ARRIVED TO FLOOR VIA STRETCHER. PATIENT IS ALERT AND ORIENTED, RESTING COMFORTABLY IN BED. RESPIRATIONS ARE EVEN AND UNLABORED. NO S/S OF DISTRESS. NO C/O PAIN. AT BEDSIDE. CALL LIGHT WITHIN REACH. WILL CPOC.
[2019-05-08] MEDS ORDERED: VITAMIN D10000 UNI1 PO (05:44)
[2019-05-08] MEDS ORDERED: VITAMIN B COMPLEX (05:46)
[2019-05-08 05:49] VITALS: Ht 182.9 cm; Wt 96.7 kg
[2019-05-08 05:54] VITALS: BP 117/73
--- NOTE | 2019-05-08 08:07 | NUR ---
ASSESSMENT DONE. DENIES NEEDS
[2019-05-08 09:00] VITALS: BP 131/63
--- NOTE | 2019-05-08 09:28 | NUR ---
I have reviewed this patient and I concur with the Shift Assessment completed by the Licensed Practical Nurse today this shift.
--- NOTE | 2019-05-08 10:54 | NUR ---
RAFI GONZALEZ NOTIFYED OF BLOOD IN STOOL
[2019-05-08 12:00] VITALS: BP 148/70
[2019-05-08 13:21] LABS: HEMATOCRIT 27.6 % (42.0-54.0); HEMOGLOBIN 9.3 g/dL (13.5-17.5)
--- NOTE | 2019-05-08 15:10 | NUR ---
REFUSED SCD'S, UP AD ROEL
[2019-05-08 15:34] LABS: % SATURATION 52 % (15-55); IRON 105 ug/dl (35-150); TOTAL IRON BIND CAPACITY 201 ug/dl (260-445); UNSAT IRON BIND CAPACITY 96 ug/dl (150-375)
--- NOTE | 2019-05-08 18:15 | NUR ---
VOICE HERE, FAMILY AT SIDE.
[2019-05-08 19:05] LABS: HEMATOCRIT 28.3 % (42.0-54.0); HEMOGLOBIN 9.6 g/dL (13.5-17.5)
[2019-05-08 20:00] VITALS: BP 131/62
--- NOTE | 2019-05-08 20:40 | NUR ---
RECIEVED REPORT FROM OUTGOING NURSE. PT AAOX4, VSS, NO S/S OF PAIN OR DISTRESS. PT NPO AFTER MIDNIGHT FOR EGD. SPOUSE AT BEDSIDE. PRBCS ORDERED, INFUSION INITIATED AT THIS TIME. PRE-INFUSION VSS. PT DENIES ANY FURTHER NEEDS AT THIS TIME. WILL CTM. CL WITHIN REACH.
[2019-05-09] VITALS: BP 106/58
[2019-05-09 04:00] VITALS: BP 121/70
[2019-05-09 06:23] LABS: BASOPHILS 0.2 % (0-2); EOSINOPHILS 1.9 % (0-7); HEMATOCRIT 28.2 % (42.0-54.0); HEMOGLOBIN 9.6 g/dL (13.5-17.5); IMMATURE GRANULOCYTES 0.5 % (0-5); LYMPHOCYTES 23.8 % (15-50); MCH 32.2 pg (26.0-34.0); MCV 94.6 fL (80.0-100.0); MEAN PLATELET VOLUME 12.1 fL (7.4-10.4); MONOCYTES 9.7 % (2-11); NEUTROPHILS 63.9 % (40-80); PLATELET COUNT 156 10x3/uL (130-400); RBC 2.98 10x6/uL (4.20-6.10); RDW 13.3 % (11.5-14.5); WBC 6.2 10x3/uL (4.8-10.8)
[2019-05-09 06:41] LABS: CALCIUM 8.3 mg/dL (8.5-10.1); CARBON DIOXIDE 27.4 mmol/L (21.0-32.0); CHLORIDE - SERUM 111 mmol/L (98-107); CREATININE - SERUM 0.8 mg/dL (0.6-1.3); SODIUM 145 mmol/L (136-145); UREA NITROGEN 27 mg/dL (7-18); eGFR NON AFRICAN AMERICAN > 90 mL/min (90-120)
[2019-05-09 06:43] LABS: CALC OSMOLALITY 293 mosm/kg (275-300); GLUCOSE 97 mg/dL (74-106); POTASSIUM - SERUM 3.8 mmol/L (3.5-5.1)
--- NOTE | 2019-05-09 08:30 | NUR ---
PT BACK FROM PROCEDURE. A&O SITTING UP IN BED RESTING QUIETLY. VSS AND BEING MONITERED PER POST PROCEDURE GUIDELINES. INTRODUCED MYSELF TO PT PRIMARY RN FOR TODAYS SHIFT. SHIFT ASSESSMENT COMPLETED. PT STATES HE IS FEELING GOOD OVERALL. DENIES ANY CURRENT PAIN OR NEEDS AT THIS TIME. CL IN REACH, BED IN LOWEST, SIDE RAILS X2. WILL CPOC.
[2019-05-09 09:00] VITALS: BP 96/56
--- NOTE | 2019-05-09 10:59 | NUR ---
PT RESTING QUIETLY ON HIS L.SIDE LYING FLAT IN BED. VSS AND STILL BEING MONITERED. PT TOLERATED CLEAR LIQUID BREAKFAST AND DENIED ANY ISSUES OR NAUSEA. WENT HOME. NO CURRENT NEEDS AT THIS TIME. CL IN REACH, BED IN LOWEST, SIDE RAILS X2. WILL CTM.
[2019-05-09 12:00] VITALS: BP 96/56
--- NOTE | 2019-05-09 16:24 | NUR ---
MIXED PTS GOLYTELY AND HE IS WORKING ON IT AND VERBALIZED UNDERSTANDING ABOUT COLONOSCOPY SCHEDULED FOR TOMORROW. PT IS NPO AFTER MIDNIGHT AND DENIES ANY QUESTIONS OR CONCERNS. CL IN REACH. WILL CTM.
--- NOTE | 2019-05-09 18:40 | NUR ---
PTS R.HAND PIV INFILTRATED D/C WITH CATHETER TIP FULLY INTACT. NEW 20 GUAGE PIV INSERTED L.FA [id number]. PT SITTING UP ON EDGE OF BED DRINKING HIS GOLYTELY. PT DENIES ANY CURRENT PAIN OR NEEDS. CL IN REACH, BED IN LOWEST, SIDE RAILS X2. WILL CTM.
--- NOTE | 2019-05-09 19:35 | NUR ---
EVENING ROUNDS COMPLETED. VSS, AAOX4, NO S/S OF DISTRESS. SPOUSE AT BEDSIDE. NS INFUSING @200MLS/HR. GOLYTELY AT BEDSIDE. PT DENIES ANY FURTHER NEEDS AT THIS TIME. WILL CPOC. CL WITHIN REACH, BED IN LOW, SR UP X2.
[2019-05-09 20:00] VITALS: BP 111/68
--- NOTE | 2019-05-10 06:46 | NUR ---
OLEGARIO COMPLETED. PT PREOP'D. AND TRANSFERD TO GI LAB.
--- NOTE | 2019-05-10 07:10 | NUR ---
REPORT RECIEVED FROM GAUGE INSPECTOR AND PATIENT CARE ASSUMED. PATIENT NOT IN ROOM. PATIENT IS IN GI LAB FOR COLONSOCOPY.
--- NOTE | 2019-05-10 08:10 | NUR ---
PATIENT BACK TO ROOM VIA HOSPITAL BED ACCOMPANIED BY HOSPITAL PERSONNEL.PATIENT IS AWAKE , ALERT AND ORIENTED X 4. PATIENT IS STABLE AND VSS. PATIENT DENIES ANY NEEDS OR PAIN.PER REPORT FROM GI LAB PERSONNEL, PATIENT HAS DIVERTICULAR DZ AND HAD SOME POLYPS REMOVED. WILL CONTINUE WITH PLAN OF CARE. SR UP X 2 BED IN LOW POSITION AND CALL LIGHT IN REACH.
[2019-05-10] MEDS ORDERED: CARAFATE1 G PO (09:34)
[2019-05-10] MEDS ORDERED: PROTONIX40 MG PO (09:34)
[2019-05-10 10:13] VITALS: BP 124/70
--- NOTE | 2019-05-10 12:19 | MORECARE ---
CASE MANAGEMENT DISCHARGE SUMMARY PATIENT: KRISTAL VUONG UNIT: [id number] ADM DATE: 05/08/19 AGE: 78 : 39 SEX: M ROOM/BED: D.2121 AUTHOR: MARIA VICTORIA EDUARDO PHYSICIAN: REFERRING PHYSICIAN: LUÍS PHILLIPS MD DATE OF SERVICE: 05/10/19 Discharge Plan Patient Name: KRISTAL VUONG [facility] [facility] 1940 Planned Disposition: Home Anticipated Discharge Date: Discharge Date: Expected LOS: Initial Reviewer: [email or web address] Initial Review Date: 05/10/2019 Generated: 05/10/19 1:18 pm DCPIA - Discharge Planning Initial Assessment Updated by [id number]: Rosanna Ya on 05/10/19 12:18 pm * Is the patient Alert and Oriented? Yes * PCP LIBRADO * Pharmacy [facility] * Preadmission Environment Home with Family * ADLs Independent * Equipment None * Community resources currently utilized None * Additional services required to return to the preadmission environment? No * Can the patient safely return to the preadmission environment? Yes * Has this patient been hospitalized within the prior 30 days at any hospital? No Coverage Notice Reviewer: [id number] Callie Mott Notice Issued Date-Time: 05/08/2019 9:40 Notice Type: Medicare Outpatient Observation Notice Notice Delivered To: Patient Relationship to Patient: Windows Technical Specialist Name: Delivery Method: HAND - Hand Delivered Tania Days: Prior Verbal Notification: Recipient Understood Notice: Yes Recipient Signature: Yes Med Rec Note Co-signed by Attending: Coverage Notice Comment: Patient Name: KRISTAL VUONG Page [phone] at 1219 All edits/amendments must be made on the electronic document DICTATION DATE: 05/10/19 1218 EMT/DISPATCHER: JAG 05/10/19 1218 RPT#: [id number] DC DATE: STATUS: ADM IN [facility] [address] [place] [address] END OF REPORT
--- NOTE | 2019-05-10 12:27 | MORECARE ---
CASE MANAGEMENT DISCHARGE SUMMARY PATIENT: KRISTAL VUONG UNIT: [id number] ADM DATE: 05/08/19 AGE: 78 : 39 SEX: M ROOM/BED: D.2121 AUTHOR: MARIA VICTORIA EDUARDO PHYSICIAN: REFERRING PHYSICIAN: LUÍS PHILLIPS MD DATE OF SERVICE: 05/10/19 Discharge Plan Patient Name: KRISTAL VUONG Facility: [facility]:[place] : 1940 Planned Disposition: Home Anticipated Discharge Date: Discharge Date: Expected LOS: Initial Reviewer: [email or web address] Initial Review Date: 05/10/2019 Generated: 05/10/19 1:26 pm Comments DCP- Discharge Planning Updated by [email or web address]: Rosanna Ya on 05/10/19 11:[address] Patient Name: KRISTAL VUONG Admission Status: ER Accout number: [id number] Admission Date: 05-08-2019 : 1940 Admission Diagnosis: Attending: LUÍS PHILLIPS Current LOS: 2 Anticipated DC Date: Planned Disposition: Home Primary Insurance: MEDICARE A & B Discharge Planning Comments: CM MET WITH PATIENT AFTER OBTAINING VERBAL CONSENT. PATIENT PLANS TO DC TO HOME TODAY. DENIES NEED FOR REHAB, HH OR EQUIPMENT. PATIENT STATES HAS SOMEONE THAT CAN PICK HIM UP AT TIME OF DC. Otolaryngology Rep: Rosanna Ya DCPIA - Discharge Planning Initial Assessment Updated by [email or web address]: Rosanna Ya on 05/10/19 12:18 pm * Is the patient Alert and Oriented? Yes * PCP LIBRADO * Pharmacy [facility] * Preadmission Environment Home with Family * ADLs Independent * Equipment None * Community resources currently utilized None * Additional services required to return to the preadmission environment? No * Can the patient safely return to the preadmission environment? Yes * Has this patient been hospitalized within the prior 30 days at any hospital? No Coverage Notice Reviewer: [id number] - Lulu Mott Notice Issued Date-Time: 05/08/2019 9:40 Notice Type: Medicare Outpatient Observation Notice Notice Delivered To: Patient Relationship to Patient: Coal Inspector Name: Delivery Method: HAND - Hand Delivered Tania Days: Prior Verbal Notification: Recipient Understood Notice: Yes Recipient Signature: Yes Med Rec Note Co-signed by Attending: Coverage Notice Comment: Last DP export: 05/10/19 11:19 a Patient Name: KRISTAL VUONG Page [phone] at 1227 All edits/amendments must be made on the electronic document DICTATION DATE: 05/10/19 1226 DIESEL ELECTRICIAN: AJG 05/10/19 1226 RPT#: [id number] DC DATE: STATUS: ADM IN [facility] [address] [place] [address] END OF REPORT
--- NOTE | 2019-05-10 13:05 | NUR ---
PATIENT IS STABLE AND VSS. PATIENT DENIES ANY NEEDS OR PAIN. ORDERS RECEIVED FRO DC. WRITTEN AND VERBAL INSTRUCTIONS GIVEN TO PATIENT. PATIENT VERBALIZED UNDERSTANDING AND SIGNED DC INSTRUCTIONS. IV DCD WITHOUT DIFFICULTY. PATIENT WAITING FOR TO PICK HIM UP. WILL CONTINUE TO MONITOR. SR UP X 2 BED IN LOW POSITION AND CALL LIGHT IN REACH.
--- NOTE | 2019-05-11 08:32 | MORECARE ---
CASE MANAGEMENT DISCHARGE SUMMARY PATIENT: KRISTAL VUONG UNIT: [id number] ADM DATE: 05/08/19 AGE: 78 : 39 SEX: M ROOM/BED: D.2121 AUTHOR: MARIA VICTORIA EDUARDO PHYSICIAN: REFERRING PHYSICIAN: LUÍS PHILLIPS MD DATE OF SERVICE: 05/11/19 Discharge Plan Patient Name: KRISTAL UVONG Facility: [facility]:[place] : 1940 Planned Disposition: Home Anticipated Discharge Date: Discharge Date: 05/10/2019 Expected LOS: Initial Reviewer: [email or web address] Initial Review Date: 05/10/2019 Generated: 05/11/19 9:32 am Comments DCP- Discharge Planning Updated by [email or web address]: Rosanna Ya on 05/10/19 11:[address] Patient Name: KRISTAL VUONG Admission Status: ER Accout number: [id number] Admission Date: 05-08-2019 : 1940 Admission Diagnosis: Attending: LUÍS PHILLIPS Current LOS: 2 Anticipated DC Date: Planned Disposition: Home Primary Insurance: MEDICARE A & B Discharge Planning Comments: CM MET WITH PATIENT AFTER OBTAINING VERBAL CONSENT. PATIENT PLANS TO DC TO HOME TODAY. DENIES NEED FOR REHAB, HH OR EQUIPMENT. PATIENT STATES HAS SOMEONE THAT CAN PICK HIM UP AT TIME OF DC. Tire Specialist: Rosanna Ya DCPIA - Discharge Planning Initial Assessment Updated by [id number]: Rosanna Ya on 05/10/19 12:18 pm * Is the patient Alert and Oriented? Yes * PCP LIBRADO * Pharmacy [facility] * Preadmission Environment Home with Family * ADLs Independent * Equipment None * Community resources currently utilized None * Additional services required to return to the preadmission environment? No * Can the patient safely return to the preadmission environment? Yes * Has this patient been hospitalized within the prior 30 days at any hospital? No Coverage Notice Reviewer: [id number] Callie Mott Notice Issued Date-Time: 05/08/2019 9:40 Notice Type: Medicare Outpatient Observation Notice Notice Delivered To: Patient Relationship to Patient: Clinical Program Director Name: Delivery Method: HAND - Hand Delivered Tania Days: Prior Verbal Notification: Recipient Understood Notice: Yes Recipient Signature: Yes Med Rec Note Co-signed by Attending: Coverage Notice Comment: Last DP export: 05/10/19 11:26 a Patient Name: KRISTAL VUONG Page [phone] at 0832 All edits/amendments must be made on the electronic document DICTATION DATE: 05/11/19 0832 COIL BINDER: JAG 05/11/19 0832 RPT#: [id number] DC DATE:05/10/19 STATUS: DIS IN [facility] [address] [place] [address] END OF REPORT
== END 2019-05-10 14:28 | disposition home or self-care (01) | DRG 378 ==
LOC: D.ER 00:58 → D.M2 04:20 → OBSVTIME 04:20 → D.M2 11:16
PROVIDERS: Emergency Medicine; Internal Medicine Gastroenterology; ADMIT Internal Medicine Nephrology; ATTEND Internal Medicine Nephrology
PROC: 0DJ08ZZ Inspection of Upper Intestinal Tract, Via Natural or Artificial Opening Endoscopic (ICD-10-PCS; principal; 2019-05-09 07:18)
PROC: 0DJD8ZZ Inspection of Lower Intestinal Tract, Via Natural or Artificial Opening Endoscopic (ICD-10-PCS; 2019-05-10)
DX: K25.4 Chronic or unspecified gastric ulcer with hemorrhage (principal); D62 Acute posthemorrhagic anemia; N17.9 Acute kidney failure, unspecified; K29.70 Gastritis, unspecified, without bleeding; I25.10 Atherosclerotic heart disease of native coronary artery without angina pectoris; E78.5 Hyperlipidemia, unspecified; N40.0 Benign prostatic hyperplasia without lower urinary tract symptoms; M81.0 Age-related osteoporosis without current pathological fracture; E83.42 Hypomagnesemia; K21.0 Gastro-esophageal reflux disease with esophagitis; K57.90 Diverticulosis of intestine, part unspecified, without perforation or abscess without bleeding; K63.5 Polyp of colon; Z87.891 Personal history of nicotine dependence

== ENCOUNTER 2019-07-17 01:01 | Inpatient (IN) | payer MEDICARE, OTHER ==
[~2019-07-17] VITALS: Ht 182.9 cm; Wt 83.6 kg
[~2019-07-17 01:01] MED LIST changes: +CARAFATE1 G PO; +K-TAB10 MEQ PO; +LASIX40 MG PO; +PROTONIX40 MG PO; +VITAMIN B COMPLEX PO; +VITAMIN D10000 UNI1 PO
[2019-07-17 01:30] LABS: BASOPHILS 0.1 % (0-2); EOSINOPHILS 0.3 % (0-7); HEMATOCRIT 30.7 % (42.0-54.0); IMMATURE GRANULOCYTES 0.3 % (0-5); LYMPHOCYTES 16.6 % (15-50); MCH 31.8 pg (26.0-34.0); MCHC 32.6 g/dL (31.0-37.0); MCV 97.8 fL (80.0-100.0); MEAN PLATELET VOLUME 11.5 fL (7.4-10.4); MONOCYTES 8.4 % (2-11); NEUTROPHILS 74.3 % (40-80); PLATELET COUNT 180 10x3/uL (130-400); RBC 3.14 10x6/uL (4.20-6.10); RDW 13.6 % (11.5-14.5); WBC 8.9 10x3/uL (4.8-10.8)
[2019-07-17 01:38] LABS: CALC OSMOLALITY 285 mosm/kg (275-300); CALCIUM 8.7 mg/dL (8.5-10.1); CARBON DIOXIDE 28.1 mmol/L (21.0-32.0); CHLORIDE - SERUM 104 mmol/L (98-107); CREATININE - SERUM 0.8 mg/dL (0.6-1.3); POTASSIUM - SERUM 3.9 mmol/L (3.5-5.1); SODIUM 135 mmol/L (136-145); UREA NITROGEN 50 mg/dL (7-18); eGFR NON AFRICAN AMERICAN > 90 mL/min (90-120)
[2019-07-17 01:41] LABS: GLUCOSE 147 mg/dL (74-106)
[2019-07-17 01:47] LABS: ALBUMIN 3.1 g/dL (3.4-5.0); ALKALINE PHOSPHATASE 59 U/L (30-120); ALT (SGPT) 17 U/L (10-68); AMYLASE - SERUM 25 U/L (25-115); BILIRUBIN - TOTAL 0.67 mg/dL (0.2-1.3); LIPASE 88 U/L (73-393); PROTEIN - SERUM 6.4 g/dL (6.4-8.2); TROPONIN-I < 0.017 ng/mL (0.000-0.060)
[2019-07-17 03:18] LABS: BILIRUBIN NEGATIVE (NEGATIVE); GLUCOSE NEGATIVE (NEGATIVE); KETONE NEGATIVE (NEGATIVE); NITRITE NEGATIVE (NEGATIVE); SPECIFIC GRAVITY 1.015 (1.005-1.020); UROBILINOGEN NORMAL (NORMAL)
[2019-07-17 05:57] VITALS: BP 110/60
[2019-07-17 06:26] LABS: HEMATOCRIT 29.1 % (42.0-54.0); HEMOGLOBIN 9.4 g/dL (13.5-17.5)
[2019-07-17 09:40] VITALS: BMI 26.8
[2019-07-17 12:45] VITALS: BP 100/50
[2019-07-17 12:58] LABS: HEMATOCRIT 25.8 % (42.0-54.0); HEMOGLOBIN 8.3 g/dL (13.5-17.5)
[2019-07-17 17:47] VITALS: BP 122/59
[2019-07-17 19:08] VITALS: BP 139/67; Ht 182.9 cm; Wt 83.6 kg
[2019-07-17 21:42] VITALS: BP 101/53
[2019-07-18 00:23] VITALS: BP 110/60
[2019-07-18 04:32] LABS: BASOPHILS 0 % (0-2); HEMATOCRIT 24.4 % (42.0-54.0); HEMOGLOBIN 7.7 g/dL (13.5-17.5); IMMATURE GRANULOCYTES 0.5 % (0-5); LYMPHOCYTES 28.1 % (15-50); MCHC 31.6 g/dL (31.0-37.0); MCV 98.4 fL (80.0-100.0); MEAN PLATELET VOLUME 10.7 fL (7.4-10.4); MONOCYTES 7.8 % (2-11); NEUTROPHILS 61.6 % (40-80); PLATELET COUNT 146 10x3/uL (130-400); RDW 13.8 % (11.5-14.5)
[2019-07-18 04:43] LABS: RBC 2.48 10x6/uL (4.20-6.10); WBC 6.2 10x3/uL (4.8-10.8)
--- NOTE | 2019-07-18 05:00 | NUR ---
I have reviewed this patient and I concur with the Shift Assessment completed by the Licensed Practical Nurse today this shift.
[2019-07-18 05:38] LABS: CALCIUM 8.2 mg/dL (8.5-10.1); CARBON DIOXIDE 27.1 mmol/L (21.0-32.0); CHLORIDE - SERUM 105 mmol/L (98-107); CREATININE - SERUM 0.9 mg/dL (0.6-1.3); SODIUM 138 mmol/L (136-145); eGFR NON AFRICAN AMERICAN 86 mL/min (90-120)
[2019-07-18 05:39] LABS: CALC OSMOLALITY 279 mosm/kg (275-300); GLUCOSE 95 mg/dL (74-106); UREA NITROGEN 24 mg/dL (7-18)
[2019-07-18 06:04] VITALS: BP 108/59
--- NOTE | 2019-07-18 07:20 | NUR ---
REC'D IN BED AWAKE AND ALERT. RESP EVEN AND UNLABORED WITH NO DISTRESS NOTED. CAN EXPRESS NEEDS AND WANTS. NO C/O NOTED OR VOICED. ASSESSMENT COMPLETED. C/L IN REACH AT BEDSIDE.
[2019-07-18 09:47] VITALS: BP 124/61
[2019-07-18 13:17] VITALS: BP 116/52
[2019-07-18 17:29] VITALS: BP 118/61
--- NOTE | 2019-07-18 18:45 | NUR ---
I have reviewed this patient and I concur with the Shift Assessment completed by the Licensed Practical Nurse today this shift.
[2019-07-18 20:00] VITALS: BP 104/46
[2019-07-18 20:09] LABS: HEMATOCRIT 22.7 % (42.0-54.0)
[2019-07-18 20:32] LABS: HEMOGLOBIN 7.2 g/dL (13.5-17.5)
[2019-07-19] VITALS: BP 106/59
--- NOTE | 2019-07-19 01:09 | NUR ---
1ST UNIT PRBC VERIFIED WITH REVENUE INSPECTOR, THEN LYNETTE RAMIREZ. VITAL SIGNS STABLE. PRBS INITIATED BY RN. RN STAYING IN ROOM TO ASSESS FOR IMMEDIATE REACTIONS. PT TOLERATING WELL.
--- NOTE | 2019-07-19 02:52 | NUR ---
I have reviewed this patient and I concur with the Shift Assessment completed by the Licensed Practical Nurse today this shift.
[2019-07-19 04:00] VITALS: BP 115/60
--- NOTE | 2019-07-19 04:13 | NUR ---
VS STABLE. 2ND UNIT PRBC VERIFIED WITH METER READER INSPECTOR AND GERALD RAMIREZ. SPIKED BY RN. PT TOLERATING WELL. WILL MONITOR CLOSELY.
[2019-07-19 09:13] LABS: BASOPHILS 0.2 % (0-2); EOSINOPHILS 1.7 % (0-7); IMMATURE GRANULOCYTES 0.5 % (0-5); LYMPHOCYTES 20.6 % (15-50); MCH 31.4 pg (26.0-34.0); MCHC 32.4 g/dL (31.0-37.0); MCV 96.9 fL (80.0-100.0); MEAN PLATELET VOLUME 11.2 fL (7.4-10.4); PLATELET COUNT 165 10x3/uL (130-400); RDW 14.5 % (11.5-14.5); WBC 5.9 10x3/uL (4.8-10.8)
[2019-07-19 09:14] LABS: HEMATOCRIT 33.9 % (42.0-54.0)
[2019-07-19 09:28] VITALS: BP 133/67
[2019-07-19 09:28] LABS: ALBUMIN 3.2 g/dL (3.4-5.0); ALKALINE PHOSPHATASE 74 U/L (30-120); ALT (SGPT) 28 U/L (10-68); BILIRUBIN - TOTAL 0.65 mg/dL (0.2-1.3); CALC OSMOLALITY 276 mosm/kg (275-300); CALCIUM 8.4 mg/dL (8.5-10.1); CARBON DIOXIDE 25.8 mmol/L (21.0-32.0); CHLORIDE - SERUM 105 mmol/L (98-107); CREATININE - SERUM 0.8 mg/dL (0.6-1.3); GLUCOSE 112 mg/dL (74-106); PHOSPHOROUS 2.7 mg/dL (2.5-4.9); POTASSIUM - SERUM 3.4 mmol/L (3.5-5.1); PROTEIN - SERUM 6.6 g/dL (6.4-8.2); SODIUM 138 mmol/L (136-145); eGFR NON AFRICAN AMERICAN > 90 mL/min (90-120)
[2019-07-19 09:31] LABS: UREA NITROGEN 13 mg/dL (7-18)
[2019-07-19 11:59] LABS: HEMATOCRIT 29.7 % (42.0-54.0); HEMOGLOBIN 9.6 g/dL (13.5-17.5)
[2019-07-19 13:20] VITALS: BP 101/59
[2019-07-19 16:45] VITALS: BP 116/53
--- NOTE | 2019-07-19 17:30 | NUR ---
I have reviewed this patient and I concur with the Shift Assessment completed by the Licensed Practical Nurse today this shift.
--- NOTE | 2019-07-19 19:30 | NUR ---
PT IN BED, AAO X 3, RESP EVEN AND UNLABORED, NO DISTRESS NOTED, CL IN REACH, SR UP X 2.
[2019-07-19 20:00] VITALS: BP 110/87
[2019-07-19 20:29] LABS: HEMATOCRIT 29.9 % (42.0-54.0); HEMOGLOBIN 9.7 g/dL (13.5-17.5)
[2019-07-20] VITALS: BP 142/79
--- NOTE | 2019-07-20 03:56 | NUR ---
I have reviewed this patient and I concur with the Shift Assessment completed by the Licensed Practical Nurse today this shift.
[2019-07-20 04:00] VITALS: BP 119/53
[2019-07-20 05:00] LABS: BASOPHILS 0.2 % (0-2); EOSINOPHILS 2.5 % (0-7); HEMATOCRIT 28.4 % (42.0-54.0); HEMOGLOBIN 9.3 g/dL (13.5-17.5); IMMATURE GRANULOCYTES 0.2 % (0-5); MCH 31.3 pg (26.0-34.0); MCHC 32.7 g/dL (31.0-37.0); MCV 95.6 fL (80.0-100.0); MEAN PLATELET VOLUME 11.6 fL (7.4-10.4); MONOCYTES 7.9 % (2-11); NEUTROPHILS 64.2 % (40-80); PLATELET COUNT 163 10x3/uL (130-400); RBC 2.97 10x6/uL (4.20-6.10); RDW 14.6 % (11.5-14.5); WBC 5.6 10x3/uL (4.8-10.8)
[2019-07-20 05:26] LABS: ALBUMIN 2.9 g/dL (3.4-5.0); ALKALINE PHOSPHATASE 58 U/L (30-120); ALT (SGPT) 31 U/L (10-68); BILIRUBIN - TOTAL 0.81 mg/dL (0.2-1.3); CALC OSMOLALITY 277 mosm/kg (275-300); CALCIUM 8.2 mg/dL (8.5-10.1); CARBON DIOXIDE 25.9 mmol/L (21.0-32.0); CHLORIDE - SERUM 103 mmol/L (98-107); CREATININE - SERUM 0.9 mg/dL (0.6-1.3); GLUCOSE 87 mg/dL (74-106); MAGNESIUM - SERUM 1.9 mg/dL (1.8-2.4); POTASSIUM - SERUM 3.1 mmol/L (3.5-5.1); PROTEIN - SERUM 5.9 g/dL (6.4-8.2); SODIUM 139 mmol/L (136-145); UREA NITROGEN 14 mg/dL (7-18); eGFR NON AFRICAN AMERICAN 86 mL/min (90-120)
[2019-07-20 05:30] LABS: PHOSPHOROUS 3.7 mg/dL (2.5-4.9)
[2019-07-20 08:45] VITALS: BP 149/90
--- NOTE | 2019-07-20 09:01 | NUR ---
ADMINISTERED MORNING MEDICATION AT THIS TIME. NO DIFFICULTY. PT IN BEDSIDE CHAIR EATING BREAKFAST. REQUESTS TO TAKE A SHOWER AFTER EATING. PT LIKES TO WALK AROUND, AMBULATES WELL ON HIS OWN. DENIES ANY NEEDS AT THIS TIME. WILL CONTINUE TO MONITOR.
--- NOTE | 2019-07-20 11:47 | NUR ---
ADMINISTERED MEDICATION AT THIS TIME. PT IS SITTING UPRIGHT IN BED, ALERT AND ORIENTED X4. DENIES ANY NEEDS. WILL CONTINUE TO MONITOR.
[2019-07-20 12:30] VITALS: BP 110/62
[2019-07-20 12:39] LABS: HEMATOCRIT 31.5 % (42.0-54.0); HEMOGLOBIN 10.2 g/dL (13.5-17.5)
--- NOTE | 2019-07-20 14:08 | NUR ---
ADMINISTERED MEDICATION AT THIS TIME. PT IS UP AMBULATING, DOING WELL ON HIS OWN. DENIES ANY NEEDS AT THIS TIME. WILL CONTINUE TO MONITOR.
--- NOTE | 2019-07-20 14:16 | NUR ---
I have reviewed this patient and I concur with the Shift Assessment completed by the Licensed Practical Nurse today this shift.
--- NOTE | 2019-07-20 16:04 | NUR ---
ADMINISTERED MEDICATION. PT IS RESTING COMFORTABLY IN BED. STATES HE IS GOING TO GO FOR A WALK. DR. PHILLIPS SAID HE WILL POSSIBLY GO HOME TOMORROW. PT DENIES ANY NEEDS. WILL CONTINUE TO MONITOR.
[2019-07-20 16:47] VITALS: BP 120/79
[2019-07-20 20:00] VITALS: BP 146/76
--- NOTE | 2019-07-20 20:30 | NUR ---
AMBULATING IN HALLWAY.NO DISTRESS NOTED. RESP EVEN AND UNLABORED..IV TO LFA INTACT WITHOUT REDNESS OR EDEMA NOTED. NO COMPLAINTS VOICED.
--- NOTE | 2019-07-21 02:50 | NUR ---
I have reviewed this patient and I concur with the Shift Assessment completed by the Licensed Practical Nurse today this shift.
[2019-07-21 04:00] VITALS: BP 143/84
[2019-07-21 05:28] LABS: HEMATOCRIT 27.9 % (42.0-54.0); HEMOGLOBIN 9.4 g/dL (13.5-17.5); LYMPHOCYTES 21.3 % (15-50); MCHC 33.7 g/dL (31.0-37.0); MCV 94.9 fL (80.0-100.0); MEAN PLATELET VOLUME 11.9 fL (7.4-10.4); NEUTROPHILS 70.7 % (40-80); PLATELET COUNT 156 10x3/uL (130-400); RBC 2.94 10x6/uL (4.20-6.10); RDW 14.6 % (11.5-14.5); WBC 5.2 10x3/uL (4.8-10.8)
[2019-07-21 05:42] LABS: ALBUMIN 2.9 g/dL (3.4-5.0); ALKALINE PHOSPHATASE 71 U/L (30-120); BILIRUBIN - TOTAL 0.83 mg/dL (0.2-1.3); CALCIUM 8.4 mg/dL (8.5-10.1); CARBON DIOXIDE 26.5 mmol/L (21.0-32.0); CHLORIDE - SERUM 104 mmol/L (98-107); CREATININE - SERUM 0.7 mg/dL (0.6-1.3); GLUCOSE 91 mg/dL (74-106); MAGNESIUM - SERUM 1.9 mg/dL (1.8-2.4); PHOSPHOROUS 3.3 mg/dL (2.5-4.9); PROTEIN - SERUM 6.1 g/dL (6.4-8.2); SODIUM 139 mmol/L (136-145); eGFR NON AFRICAN AMERICAN > 90 mL/min (90-120)
[2019-07-21 05:43] LABS: ALT (SGPT) 39 U/L (10-68); CALC OSMOLALITY 276 mosm/kg (275-300); UREA NITROGEN 10 mg/dL (7-18)
--- NOTE | 2019-07-21 07:40 | NUR ---
PT SITTING UP IN BED ALERT AND ORIENTED WATCHING TV. IV LOCATED TO LEFT UPPER ARM RUNNING PROTONIX @ 10ML. NO S/S OF DISTRESS AT THIS TIME, STATES HE FEELS GREAT AND IS READY TO GO HOME. DENIES NEEDS, WILL CONT TO MONITOR.
[2019-07-21 09:19] VITALS: BP 128/70
[2019-07-21 12:43] VITALS: BP 90/47
== END 2019-07-21 16:16 | disposition home or self-care (01) | DRG 378 ==
LOC: D.ER 01:01 → D.MS 04:40 → OBSVTIME 04:40 → D.MS 17:15
PROVIDERS: Family Medicine; Internal Medicine Gastroenterology; ADMIT Internal Medicine Nephrology; ATTEND Internal Medicine Nephrology
PROC: 0DJ08ZZ Inspection of Upper Intestinal Tract, Via Natural or Artificial Opening Endoscopic (ICD-10-PCS; principal; 2019-07-18 15:08)
DX: K92.2 Gastrointestinal hemorrhage, unspecified (principal); D62 Acute posthemorrhagic anemia; N17.9 Acute kidney failure, unspecified; E87.1 Hypo-osmolality and hyponatremia; E44.0 Moderate protein-calorie malnutrition; Z68.26 Body mass index [BMI] 26.0-26.9, adult; I25.10 Atherosclerotic heart disease of native coronary artery without angina pectoris; I10 Essential (primary) hypertension; E78.5 Hyperlipidemia, unspecified; K59.00 Constipation, unspecified; K21.0 Gastro-esophageal reflux disease with esophagitis

== ENCOUNTER 2019-09-10 10:57 | Emergency (ER) | payer MEDICARE, OTHER ==
[~2019-09-10] VITALS: Ht 182.9 cm; Wt 82.7 kg
[2019-09-10 11:13] VITALS: Ht 182.9 cm; Wt 82.7 kg
[2019-09-10 11:42] LABS: BASOPHILS 0.2 % (0-2); HEMATOCRIT 43.9 % (42.0-54.0); HEMOGLOBIN 14.4 g/dL (13.5-17.5); IMMATURE GRANULOCYTES 0.3 % (0-5); MCHC 32.8 g/dL (31.0-37.0); MCV 97.6 fL (80.0-100.0); MEAN PLATELET VOLUME 11.6 fL (7.4-10.4); MONOCYTES 8.6 % (2-11); NEUTROPHILS 58.9 % (40-80); PLATELET COUNT 173 10x3/uL (130-400); RDW 14.4 % (11.5-14.5); WBC 5.9 10x3/uL (4.8-10.8)
[2019-09-10 11:52] LABS: CALC OSMOLALITY 275 mosm/kg (275-300); CALCIUM 9.5 mg/dL (8.5-10.1); CARBON DIOXIDE 26.2 mmol/L (21.0-32.0); CHLORIDE - SERUM 102 mmol/L (98-107); GLUCOSE 124 mg/dL (74-106); POTASSIUM - SERUM 3.5 mmol/L (3.5-5.1); SODIUM 137 mmol/L (136-145); UREA NITROGEN 15 mg/dL (7-18); eGFR NON AFRICAN AMERICAN 76 mL/min (90-120)
[2019-09-10 11:59] LABS: APTT 26.6 SECONDS (22.8-39.4); INR 0.92 (0.85-1.17); PROTIME 12.4 SECONDS (11.6-15.0)
[2019-09-10 12:09] LABS: ALBUMIN 3.7 g/dL (3.4-5.0); ALKALINE PHOSPHATASE 76 U/L (30-120); ALT (SGPT) 18 U/L (10-68); BILIRUBIN - TOTAL 0.56 mg/dL (0.2-1.3); CKMB 1.8 U/L (0.0-3.6); CREATINE KINASE 74 UL (21-232); PROTEIN - SERUM 7.1 g/dL (6.4-8.2)
[2019-09-10 12:11] LABS: TROPONIN-I < 0.017 ng/mL (0.000-0.060)
[2019-09-10 14:52] VITALS: BP 96/71
== END 2019-09-10 14:52 | disposition home or self-care (01) ==
LOC: D.ER 10:57
PROVIDERS: Family Medicine
DX: R55 Syncope and collapse (principal); F32.9 Major depressive disorder, single episode, unspecified; R53.1 Weakness; T67.9XXA Effect of heat and light, unspecified, initial encounter; I10 Essential (primary) hypertension; I25.2 Old myocardial infarction

== ENCOUNTER → 2020-06-02 09:34 | Outpatient (CLI) | payer MEDICARE, OTHER ==
[2019-09-10 11:13] VITALS: BMI 24.7
== END | disposition home or self-care (01) ==
LOC: D.HCCECHO 09:34
PROVIDERS: ATTEND Internal Medicine Cardiovascular Disease
DX: I25.10 Atherosclerotic heart disease of native coronary artery without angina pectoris (principal)